=== PATIENT | male | born 1955 | race Caucasian/White ===

== ENCOUNTER → 2018-05-29 09:54 | Outpatient (CLI) | payer BC, SELFPAY ==
[2018-05-29 12:18] LABS: Absolute Lymphocyte Count 1.86 X10^3/ul (0.83-4.51); Basophil# 0.06 X10^3/uL; Basophil% 0.7 % (0-1); Eosinophils% 3.3 % (0-5); Hematocrit 47.2 % (40-54); Hemoglobin 15.9 g/dl (13.0-16.5); Lymphocyte # 1.86 X10^3/ul (4.0); Lymphocyte % 20.5 % (19-41); Mean Corp Hgb Conc 33.7 g/gl (32-36); Mean Corpuscular Hgb 29.8 pg (27.0-32.0); Mean Corpuscular Volume 88.6 fL (80-94); Mean Platelet Vol. 10.2 fl (6.2-12.0); Monocyte# 0.84 X10^3/uL; Monocyte% 9.3 % (0-10); Platelet Count 262 K/mm3 (150-450); RBC Distribution Width CV 14.6 % (11.6-14.6); Red Blood Count 5.33 M/mm3 (4.6-6.2); White Blood Count 9.1 K/mm3 (4.4-11.0)
[2018-05-29 12:23] LABS: POSITIVE COUNT NO; POSITIVE DIFFERENTIAL NO; POSITIVE MORPHOLOGY NO
[2018-05-29 12:30] LABS: Cholesterol 221 mg/dL (200); High Density Lipoprotein 43 mg/dL; PSA,Total - Annual Screen 1.41 ng/mL (0.00-4.00); Triglycerides 107 mg/dL; Very Low Density Lipoprotein 21 mg/dL (5-40)
[2018-05-29 12:37] LABS: Hemoglobin A1c 5.4 % (4.2-6.3)
[2018-05-29 12:42] LABS: Microalbumin,Random Urine 23.4 mg/L (NO RANGE EST.); Microalbumin:Creatinine Ratio 57.6 mg/g CRE (<30 mg/g CRE)
== END ==
PROVIDERS: Family Provider Family Medicine; PCP Family Medicine; Visit Provider Family Medicine
DX: Z00.01 Encounter for general adult medical examination with abnormal findings (principal); I10 Essential (primary) hypertension; E78.00 Pure hypercholesterolemia, unspecified; Z72.0 Tobacco use; Z12.5 Encounter for screening for malignant neoplasm of prostate; Z83.3 Family history of diabetes mellitus
CPT/HCPCS: 36415; 80061; 82043; 82570; 83036; 84153; 85025; G0103

== ENCOUNTER → 2018-06-19 13:43 | Outpatient (CLI) | payer BC, SELFPAY ==
--- NOTE | 2018-06-19 13:47 | CT_ITS ---
STUDY: LOW DOSE CT LUNG CANCER SCREENING REASON FOR EXAM: Male, 63 years old. Tobacco abuse 1 packet q. day x 40 years. RADIATION DOSAGE (If Supplied By Facility): CTDIvol = ( 3.02 ) mGy, DLP = ( 106.46 ) mGycm TECHNIQUE: No contrast was administered. Low dose technique was utilized (average mAS-38 and kVp 120). 1.25 mm axial source images with a slice interval of 1.25-mm were reconstructed in lung windows. Nodule measured using lung windows on PACS and/or independent workstation with automated measurement of minimum and maximum diameter. Nodule measurement reported as average diameter rounded to the nearest whole number. Growth is defined as an increase ins size of greater than 1.5 mm. # of Images: 497 COMPARISON: None. NODULES: Nodule: No worrisome lung nodule or mass identified. Emphysema: There are COPD changes. A 5.8 mm calcified nodule/granuloma present anteriorly in the right middle lobe. Inferiorly there is mild atelectasis in the lingula. Minor atelectasis posteriorly in the left lower lobe. Endobronchial lesion: None. Aorta: Mild atherosclerotic calcification of the aortic arch. Coronary arteries: Atherosclerotic calcification of the coronary arteries. Heart: Normal in size. Pulmonary artery: Within normal limits. Mediastinal nodes: No significant mediastinal or hilar lymphadenopathy demonstrated. Other chest and abdominal findings: Mildly increased thoracic kyphosis. Diffuse fatty hepatic infiltration. CT/Low Dose CT Lung Screening IMPRESSION: No worrisome lung nodule or mass identified. Lung-RADS category 2 - Continue annual screening with LDCT in 12 months. Possible COPD. Atherosclerotic coronary arterial calcifications. IMPORTANT NOTES FOR USE: ACR Lung-RADS Version 1.0 Assessment Categories Release Date: December 27, 2013 Category: Coded 0-4 bases on nodule(s) with highest degree of suspicion. Negative screen is defined as categories 1 and 2; a positive screen is defined as categories 3 and 4. Category 3 and 4A nodules that are unchanged on interval CT should be coded as category 2, and individuals returned to screening in 12 months. Category 4X: Category 3 or 4 nodules with additional imaging findings that increase the suspicion of lung cancer, such as spiculation, GGN that doubles in size in 1 year, enlarged lymph notes, etc. Category Modifiers: S (significant finding unrelated to lung cancer) and C (prior history of treated lung cancer) may be added to the 0-4 Lung-RADS Electronically Signed: Renetta Palacios MD at 8:12 EDT Tel , Service support ,
== END ==
PROVIDERS: Family Provider Family Medicine; PCP Family Medicine; Referring Provider Family Medicine; Visit Provider Family Medicine
DX: R03.0 Elevated blood-pressure reading, without diagnosis of hypertension (principal); Z72.0 Tobacco use; Z87.891 Personal history of nicotine dependence; Z12.2 Encounter for screening for malignant neoplasm of respiratory organs; Z82.49 Family history of ischemic heart disease and other diseases of the circulatory system
CPT/HCPCS: G0297

== ENCOUNTER → 2019-06-04 | Outpatient (CLI) | payer BC, SELFPAY ==
[2017-07-15 08:11] VITALS: BMI 26.3
[2019-06-04 12:46] LABS: Absolute Lymphocyte Count 2.28 X10^3/uL (0.83-4.51); Basophil# 0.06 X10^3/uL; Basophil% 0.6 % (0-1); Eosinophil# 0.32 X10^3/uL; Eosinophils% 3.3 % (0-5); Hematocrit 47.5 % (40-54); Hemoglobin 15.5 g/dL (13.0-16.5); Lymphocyte # 2.28 X10^3/ul (4.0); Lymphocyte % 23.7 % (19-41); Mean Corp Hgb Conc 32.6 g/dL (32-36); Mean Corpuscular Hgb 28.9 pg (27.0-32.0); Mean Corpuscular Volume 88.5 fL (80-94); Mean Platelet Vol. 9.3 fl (6.2-12.0); Monocyte# 0.95 X10^3/uL; Monocyte% 9.9 % (0-10); NRBC Flagged by Analyzer 0 % (0-5); Neutrophil % 62.2 % (47-70); Platelet Count 248 K/mm3 (150-450); RBC Distribution Width CV 14.2 % (11.6-14.6); RBC Distribution Width SD 45.5 fl (35.1-43.9); Red Blood Count 5.37 M/mm3 (4.6-6.2); White Blood Count 9.6 K/mm3 (4.4-11.0)
[2019-06-04 13:13] LABS: Microalbumin,Random Urine 11.9 mg/L (NO RANGE EST.)
[2019-06-04 13:15] LABS: ALB/GLOB Ratio 1.3 RATIO (0.9-2.4); AST(SGOT) 10 U/L (15-37); Alanine Aminotransfer ALT/SGPT 21 U/L (16-61); Albumin, Serum 4.4 g/dL (3.2-5.0); Alkaline Phosphatase 46 U/L (45-117); Anion Gap 4 (5-15); BUN 16 mg/dL (7-18); Calcium,Total 9.3 mg/dL (8.5-10.1); Chloride 106 mmol/L (98-107); Cholesterol 233 mg/dL (200); Creatinine, Serum 0.84 mg/dL (0.70-1.30); EST Glomerular Filtration Rate 97 mL/min (>60); Est Glom Filt Rate - Afr Amer 117 mL/min (>60); Globulin 3.3 g/dL (2.2-4.2); Glucose 84 mg/dL (74-106); High Density Lipoprotein 45 mg/dL; PSA,Total - Annual Screen 1.89 ng/mL (0.00-4.00); Protein, Total 7.7 g/dL (6.4-8.2); Sodium Level 138 mmol/L (136-145); Triglycerides 123 mg/dL; Very Low Density Lipoprotein 25 mg/dL (5-40)
== END | disposition home or self-care (01) ==
PROVIDERS: Family Provider Family Medicine; PCP Family Medicine; Visit Provider Family Medicine
DX: Z00.00 Encounter for general adult medical examination without abnormal findings (principal); I10 Essential (primary) hypertension; R80.9 Proteinuria, unspecified; E78.00 Pure hypercholesterolemia, unspecified; Z12.5 Encounter for screening for malignant neoplasm of prostate
CPT/HCPCS: 36415; 80053; 80061; 82043; 82570; 84153; 85025; G0103

== ENCOUNTER → 2020-04-24 | Outpatient (CLI) | payer MEDICARE, OTHER, SELFPAY ==
[2017-07-15 08:11] VITALS: BMI 26.3
--- NOTE | 2020-04-24 08:58 | RAD_ITS ---
STUDY: X-RAY - RIGHT ELBOW REASON FOR EXAM: Male, 65 years old. right elbow pain, lateral bony enlargement -- no injury-years of bowling TECHNIQUE: 3 view(s) of the elbow. COMPARISON: None. FINDINGS: Normal visualized humerus, radius and ulna. Normal radiocapitellar and ulnotrochlear articulations. The soft tissue structures are unremarkable. RAD/Elbow min 3 Views IMPRESSION: Normal x-ray examination of the elbow. Electronically Signed: Artemio Cody MD at 17:20 EDT Tel , Service support ,
== END | disposition home or self-care (01) ==
LOC: MTRAD 08:55
PROVIDERS: PCP Family Medicine; Referring Provider Family Medicine; Visit Provider Family Medicine
DX: M25.521 Pain in right elbow (principal)
CPT/HCPCS: 73080

== ENCOUNTER → 2020-05-09 | Outpatient (CLI) | payer MEDICARE, OTHER, SELFPAY ==
[2017-07-15 08:11] VITALS: BMI 26.3
--- NOTE | 2020-05-09 07:16 | MRI_ITS ---
STUDY: MRI BRAIN WITH AND WITHOUT CONTRAST REASON FOR EXAM: Male, 65 years old. Familial history of brain aneurysm. TECHNIQUE: Standardized multiplanar fat and water weighted pulse sequences were obtained. 16ml of IV Dotarem was administered for the contrast portion of the examination. COMPARISON: None. FINDINGS: No restricted diffusion throughout the brain parenchyma. Normal size of the ventricles and extra-axial spaces for the patient''s age. Small subcortical white matter T2 FLAIR hyperintensity in both cerebral hemispheres are nonspecific. They may be secondary to microvascular disease. Normal bilateral basal ganglia. Normal thalami. There is no extra-axial fluid accumulation. Normal flow voids within the major intracranial circulation suggesting patency by spin echo criteria. Normal venous enhancement. There is no enhancing intra-axial or extra-axial abnormality. Normal sella turcica, pituitary gland, infundibular stalk, optic chiasm and hypothalamus. Normal tectal plate and pineal gland. Normal midbrain, fidencio and medulla. Normal cerebellum. Normal basal cisterns. Normal bilateral temporal bones. Normal bilateral internal auditory canals. No demonstrated orbital abnormality, within the constraints of a routine brain study. Mucosal thickening in the maxillary sinuses and ethmoid sinuses. Normal calvarium and skull base. Normal visualized soft tissue structures. Normal visualized upper cervical spine. No abnormal enhancing lesions extra-axially and intraaxially. MRI/Brain W/WO Contrast IMPRESSION: 1. No MRI evidence of acute or subacute ischemic infarct or acute intracranial abnormality. 2. No MRI evidence of any enhancing lesions extra-axially and intraaxially. 3. Multiple small subcortical white matter T2 FLAIR hyperintensity foci in both cerebral hemispheres are nonspecific. They may be secondary to microvascular disease. 4. Moderate mucosal thickening in the maxillary sinuses and mild mucosal thickening in the ethmoid sinuses COMMENT: MRA of the head is more helpful for evaluation of intracranial aneurysm not visible on an MRI of the brain with and without contrast. Electronically Signed: Jarrod Patel MD at 9:15 EDT , Service support ,
[2020-05-09 07:45] LABS: CREATININE FINGERSTICK 0.9 mg/dL (0.70-1.30); EGFR FINGERSTICK > 60.0000 mL/min (>60)
--- NOTE | 2020-05-09 08:23 | CT_ITS ---
STUDY: LOW DOSE CT LUNG CANCER SCREENING REASON FOR EXAM: Male, 65 years old. FAM HX OF LUNG CA, TOBACCO ABUSE, SMOKER 46 YRS X 1PPD, UE=115, HX-AAA RADIATION DOSAGE (If Supplied By Facility): CTDIvol = ( 3.02 ) mGy, DLP = ( 116.64 ) mGycm TECHNIQUE: No contrast was administered. Low dose technique was utilized (average mAS-38 and kVp 120). 1.25 mm axial source images with a slice interval of 1.25-mm were reconstructed in lung windows. 2.5 mm axial source images with a slice interval of 2.5-mm were reconstructed in lung windows. 5.0 mm axial source images with a slice interval of 5.0-mm were reconstructed in soft tissue windows. Nodule measured using lung windows on PACS and/or independent workstation with automated measurement of minimum and maximum diameter. Nodule measurement reported as average diameter rounded to the nearest whole number. Growth is defined as an increase ins size of greater than 1.5 mm. COMPARISON: Comparison is made with prior study dated 06/19/2018. NODULES: Stable focal scarring in the anterior lateral aspect of the lingular segment of the left upper lobe. Stable calcified granuloma in the anterior right middle lobe. Emphysema: Mild emphysematous changes. Aorta: Atherosclerotic plaques. Coronary arteries: Coronary artery calcification. Heart: Unremarkable. Pulmonary artery: Within normal limits. Mediastinal nodes: Small benign-appearing lymph nodes. Other chest and abdominal findings: CT/Low Dose CT Lung Screening IMPRESSION: Lung-RADS category 2 - Continue annual screening with LDCT in 12 months. IMPORTANT NOTES FOR USE: ACR Lung-RADS Version 1.0 Assessment Categories Release Date: December 27, 2013 Category: Coded 0-4 bases on nodule(s) with highest degree of suspicion. Negative screen is defined as categories 1 and 2; a positive screen is defined as categories 3 and 4. Category 3 and 4A nodules that are unchanged on interval CT should be coded as category 2, and individuals returned to screening in 12 months. Category 4X: Category 3 or 4 nodules with additional imaging findings that increase the suspicion of lung cancer, such as spiculation, GGN that doubles in size in 1 year, enlarged lymph notes, etc. Category Modifiers: S (significant finding unrelated to lung cancer) and C (prior history of treated lung cancer) may be added to the 0-4 Lung-RADS Electronically Signed: Aden Mcdermott, at 10:46 EDT , Service support ,
--- NOTE | 2020-05-09 08:39 | US_ITS ---
PROCEDURES: ULTRASOUND AORTA REASON FOR EXAM: Male, 65 years old. Smoker TECHNIQUE: Ultrasound evaluation of the aorta was performed with real-time and static france-scale imaging. COMPARISON: None. FINDINGS: There is atherosclerotic plaque formation of the abdominal aorta. Aorta measures: Proximal 2.2 cm. Middle 3.7 cm. Distal 2.5 cm. Aorta measure transversely: Proximal 2.1 cm. Middle 3.2 cm. Distal 5.6 cm. Right iliac artery measures: 1.7 cm. Right iliac artery measure transversely: 1.7 cm. Left iliac artery measures: 1.7 cm. Left iliac artery measure transversely: 9.2 cm. Saccular infrarenal abdominal aortic aneurysm with a transverse dimension of 5.6 cm in AP dimension of 5.3 cm.. Mural thrombus. US/Aorta IMPRESSION: Saccular infrarenal abdominal aortic aneurysm with a transverse dimension of 5.6 cm. Mural thrombus. Ectasia of the common iliac arteries bilaterally. Electronically Signed: Aden Mcdermott, at 9:32 EDT , Service support ,
== END | disposition home or self-care (01) ==
LOC: US 07:10
PROVIDERS: PCP Family Medicine; Referring Provider Family Medicine; Visit Provider Family Medicine
DX: F17.210 Nicotine dependence, cigarettes, uncomplicated (principal); I10 Essential (primary) hypertension; Z13.6 Encounter for screening for cardiovascular disorders; Z82.49 Family history of ischemic heart disease and other diseases of the circulatory system; Z12.2 Encounter for screening for malignant neoplasm of respiratory organs
CPT/HCPCS: 70553; 76775; A9575; G0297

== ENCOUNTER → 2020-07-07 07:54 | Outpatient (CLI) | payer MEDICARE, OTHER, SELFPAY ==
[2017-07-15 08:11] VITALS: BMI 26.3
[2020-07-07 08:24] LABS: Absolute Lymphocyte Count 2.58 X10^3/uL (0.83-4.51); Absolute Neutrophil Count 6.4 X10^3/uL (2.0-7.7); Basophil# 0.07 X10^3/uL; Basophil% 0.7 % (0-1); Eosinophil# 0.31 X10^3/uL; Hematocrit 49.4 % (40-54); Lymphocyte # 2.58 X10^3/ul (4.0); Lymphocyte % 24.7 % (19-41); Mean Corp Hgb Conc 32.4 g/dL (32-36); Mean Corpuscular Hgb 29.1 pg (27.0-32.0); Mean Corpuscular Volume 89.8 fL (80-94); Mean Platelet Vol. 9.1 fl (6.2-12.0); Monocyte# 1.05 X10^3/uL; Monocyte% 10.1 % (0-10); NRBC Flagged by Analyzer 0 % (0-5); Neutrophil # 6.39 X10^3/uL (2.7-7.7); Neutrophil % 61.2 % (47-70); Platelet Count 266 K/mm3 (150-450); RBC Distribution Width CV 13.9 % (11.6-14.6); RBC Distribution Width SD 45.5 fl (35.1-43.9); White Blood Count 10.4 K/mm3 (4.4-11.0)
[2020-07-07 08:47] LABS: ALB/GLOB Ratio 1.1 RATIO (0.9-2.4); AST(SGOT) 11 U/L (15-37); Alanine Aminotransfer ALT/SGPT 19 U/L (16-61); Albumin, Serum 3.9 g/dL (3.2-5.0); Alkaline Phosphatase 46 U/L (45-117); Anion Gap 2 (5-15); BUN 20 mg/dL (7-18); BUN/Creat Ratio 23.1 RATIO (10-20); Calcium,Total 9.2 mg/dL (8.5-10.1); Chloride 112 mmol/L (98-107); Cholesterol 214 mg/dL (200); Creatinine, Serum 0.86 mg/dL (0.70-1.30); EST Glomerular Filtration Rate 94 mL/min (>60); Est Glom Filt Rate - Afr Amer 114 mL/min (>60); Globulin 3.6 g/dL (2.2-4.2); Glucose 101 mg/dL (74-106); High Density Lipoprotein 45 mg/dL; PSA,Total - Annual Screen 1.51 ng/mL (0.00-4.00); Protein, Total 7.5 g/dL (6.4-8.2); Sodium Level 142 mmol/L (136-145); Triglycerides 102 mg/dL; Very Low Density Lipoprotein 20 mg/dL (5-40)
[2020-07-07 08:48] LABS: Vitamin D,25 Hydroxy 19.4 ng/mL
== END ==
PROVIDERS: PCP Family Medicine; Referring Provider Family Medicine; Visit Provider Family Medicine
DX: I10 Essential (primary) hypertension (principal); E78.00 Pure hypercholesterolemia, unspecified; E55.9 Vitamin D deficiency, unspecified; Z12.5 Encounter for screening for malignant neoplasm of prostate
CPT/HCPCS: 36415; 80053; 80061; 82306; 84153; 85025; G0103

== ENCOUNTER 2020-11-02 15:58 | Outpatient (RCR) | payer MEDICARE, OTHER, SELFPAY ==
[2017-07-15 08:11] VITALS: BMI 26.3
[2020-11-02] MEDS: COVID-19 VACC, MRNA(PFIZER)/PF 30 MCG/0.3 ML SYRINGE IM (08:03)
[2020-11-23] MEDS: COVID-19 VACC, MRNA(PFIZER)/PF 30 MCG/0.3 ML SYRINGE IM (07:56)
== END 2021-02-06 23:59 ==
LOC: IMMUN 15:58
PROVIDERS: PCP Family Medicine; Visit Provider Family Medicine
DX: Z23 Encounter for immunization (principal)
CPT/HCPCS: 0001A; 0002A; 91300

== ENCOUNTER 2022-04-23 08:03 | Inpatient (IN) | payer MEDICARE, OTHER, SELFPAY ==
[2022-04-23] VITALS (24 sets, daily range): BP systolic 117–176; BP diastolic 71–102; PULSE 56–80; RESP 16–22; TEMP 36.1–36.9; O2SAT 94–99; BMI 24.3; BMI 23.8
--- NOTE | 2022-04-23 08:12 | EKG12_ITS ---
Test Reason : CP Blood Pressure : / mmHG Vent. Rate : 060 BPM Atrial Rate : 060 BPM P-R Int : 154 ms QRS Dur : 096 ms QT Int : 450 ms P-R-T Axes : 056 -66 049 degrees QTc Int : 450 ms Normal sinus rhythm Left axis deviation ST elevation consider anterolateral injury or acute infarct ACUTE [place] / STEMI Abnormal ECG Confirmed by YULIANA RAUSCH, ROBSON ([id number]), editor publications LUIZ HADDAD ([id number]) on 04/24/2022 11:26:06 AM Referred By: Kathryn Fontana Confirmed By:ROBSON BRIDGES MD
--- NOTE | 2022-04-23 08:14 | ED.VIS.CHEST ---
HPI History of Present Illness Chief Complaint: Chest Pain Informant: patient and spouse/S.O. Narrative Narrative: 67-year-old male presents to the emergency department with 2 hours of a central chest pain. Patient notes associated nausea and diaphoresis. He notes discomfort in his bilateral arms. He has a history of abdominal aortic repair in 2019. He denies any recent bleeding or any ingestion of phosphodiesterase inhibitors. He is an active smoker. PFSH PFSH Medical History COPD (chronic obstructive pulmonary disease) Hypertension Smoker Home Medications cholecalciferol (vitamin D3) 25 mcg (1,000 unit) capsule (Vitamin D3) 1,000 unit PO DAILY 07/14/17 [History Last Taken Unknown] cyanocobalamin (vitamin B-12) 1,000 mcg tablet (Vitamin B-12) 1,000 mcg PO DAILY 07/14/17 [History Last Taken Unknown] emfpohyx-yxc-kozwg acid 300 mcg-lycopene 600 mcg-lutein 300 mcg tablet (Centrum Silver Men) 1 ea PO DAILY 07/14/17 [History Last Taken Unknown] omega 7-cfs-jwm-fish oil 300 mg-1,000 mg capsule (Fish Oil) 1 ea PO DAILY 07/14/17 [History Last Taken Unknown] pyridoxine (vitamin B6) 50 mg tablet 100 mg PO DAILY 07/14/17 [History Last Taken Unknown] Allergy/AdvReac Type Severity Reaction Status Date / Time No Known Allergies Allergy Verified 04/23/22 08:23 Surgical History S/P AAA repair Social History (Updated 04/23/22 @ 08:[address] Yonny Ames, ) current gender identity: male Smoking Status: Heavy Smoker (>10/day) ROS ROS ED Constitutional Constitutional ED: Denies chills or weight loss Eyes Eyes: Denies change in vision or diplopia ENT ENT ED: Denies ear pain, rhinorrhea or sore throat Cardiovascular Cardiovascular: Reports chest pain; Denies orthopnea, palpitations or racing heartbeat Respiratory/Chest Respiratory/Chest: Denies cough, dyspnea or orthopnea Gastrointestinal Gastrointestinal: Reports nausea; Denies abdominal pain, diarrhea or vomiting Genitourinary Genitourinary ED: Denies dysuria, hematuria or urinary frequency Musculoskeletal Musculoskeletal: Denies arthralgias or myalgias Integumentary Denies abscess or rash Neurologic Neurologic: Denies headache(s) or weakness Psychiatric Psychiatric: Denies anxiety, depression, suicidal ideation or suicidal thoughts Endocrine Endocrinology: Denies polydipsia, polyphagia or polyuria Allergic/Immunologic Allergic/Immunologic ED: Denies mouth swelling, tongue swelling or urticaria EXAM Physical Exam Const Vital Signs: 04/23/22 08:04 04/23/22 08:08 04/23/22 08:10 Temperature 96.9 F L 97.6 F L Temperature Source Temporal Temporal Pulse Rate 66 58 L Respiratory Rate 16 18 20 H Respiratory Effort Blood Pressure 176/98 H 176/98 H 176/98 H Blood Pressure Mean 124 124 Pulse Ox 96 98 Oxygen Delivery Method Room Air Room Air 04/23/22 08:23 04/23/22 08:26 Temperature 97.6 F L Temperature Source Temporal Pulse Rate 58 L Respiratory Rate 18 Respiratory Effort Normal Non-Labored Blood Pressure 172/92 H Blood Pressure Mean 118 Pulse Ox 98 Oxygen Delivery Method Room Air Positive well nourished and well developed General Appearance ED: well developed HEENT Reports normocephalic, head/scalp atraumatic and moist mucous membranes Eyes PERRL and EOMs intact bilaterally Neck no lymphadenopathy, supple and no JVD Resp normal respiratory effort and clear to auscultation bilaterally Cardio regular rate, regular rhythm and no murmurs GI normal to inspection, nondistended, normoactive bowel sounds and non-tender Palpation: soft Back/Spine no CVA tenderness and normal ROM Extremity normal to inspection General Extremety ED: Negative for edema General Extremity: Negative for edema Neuro oriented x3 and CN's II-XII intact bilaterally Sensorium / Orientation: alert Motor Exam: strength 5/5 throughout Psych mental status grossly normal Mood & Affect: Negative for depressed or tearful Skin no rashes or lesions noted and no wounds Skin Narrative: Diaphoretic MDM MDM MDM Narrative Medical decision making narrative: Patient's EKG is a STEMI. He received heparin Brilinta aspirin morphine Zofran and nitroglycerin. Patient will be taken to the [facility] emerg[facility]. Lab Data Attestation: I reviewed the patient's lab results. Labs: Laboratory Results - last 24 hr 04/23/22 04/23/22 04/23/22 08:15 08:15 08:15 WBC 15.4 H RBC 5.68 Hgb 16.6 H Hct 49.5 MCV 87.1 MCH 29.2 MCHC 33.5 RDW Std Deviation 46.1 H RDW Coeff of Renata 14.4 Plt Count 278 MPV 9.1 Immature Gran % (Auto) 0.600 Neut % (Auto) 78.9 H Lymph % (Auto) 13.2 L [place] % (Auto) 6.5 Eos % (Auto) 0.5 Baso % (Auto) 0.3 Absolute Neuts (auto) 12.2 H Absolute Lymphs (auto) 2.03 Nucleated RBC % 0 PT 13.4 INR 1.1 APTT 28.2 Sodium 139 Potassium 3.4 L Chloride 108 H Carbon Dioxide 24.0 Anion Gap 7 BUN 17 Creatinine 0.92 Estim Creat Clear Calc 79.35 Est GFR (MDRD) Af Amer 105 Est GFR (MDRD) Non-Af 87 BUN/Creatinine Ratio 18.5 Glucose 137 H Calcium 10.0 Phosphorus Magnesium Total Bilirubin Direct Bilirubin AST ALT Alkaline Phosphatase Troponin I High Sens 1862 H* Total Protein Albumin Globulin 04/23/22 08:15 WBC RBC Hgb Hct MCV MCH MCHC RDW Std Deviation RDW Coeff of Renata Plt Count MPV Immature Gran % (Auto) Neut % (Auto) Lymph % (Auto) [place] % (Auto) Eos % (Auto) Baso % (Auto) Absolute Neuts (auto) Absolute Lymphs (auto) Nucleated RBC % PT INR APTT Sodium Potassium Chloride Carbon Dioxide Anion Gap BUN Creatinine Estim Creat Clear Calc Est GFR (MDRD) Af Amer Est GFR (MDRD) Non-Af BUN/Creatinine Ratio Glucose Calcium Phosphorus 1.9 L Magnesium 2.4 Total Bilirubin 0.80 Direct Bilirubin 0.16 AST 30 ALT 20 Alkaline Phosphatase 40 L Troponin I High Sens Total Protein 8.0 Albumin 4.4 Globulin 3.6 EKG Initial EKG: Attestation: I personally reviewed and interpreted this EKG as follows: Comments: Normal sinus rhythm with a ventricular rate of 60 bpm. There is significant ST elevation in anterior lateral pattern. Discharge Plan Dx/Rx/DC Orders Clinical Impression: ST elevation (STEMI) myocardial infarction, Tobacco abuse Disposition Disposition: Acute Care Hospital [facility] Discharge Date/Time: 04/23/22 08:18
[2022-04-23] MEDS: Ondansetron 4 MG/2 ML Vial IV ×2 (08:15→21:30)
[2022-04-23] MEDS: Morphine 4 MG/ML Syringe IV (08:15)
[2022-04-23] MEDS: Heparin Injection (Vial) 5,000 UNIT/ML VIAL 4000 UNIT IV (08:15)
[2022-04-23] MEDS: Aspirin 81 MG TAB.CHEW 324 MG PO (08:16)
[2022-04-23] MEDS: TICAGRELOR 90 MG TABLET 180 MG PO (08:16)
--- NOTE | 2022-04-23 08:24 | HP.PCM.HOS_ITS ---
HPI - General General Date of Admission: 04/23/22 Date of Service: 04/23/22 Chief Complaint: Chest pain started about 2 AM today, lasted for 2 hours. Associated with diaphoresis. HPI Narrative HUSSEIN ATKINS, is a 67 M with recent history of AAA stenting in August 2020 in [facility] came to ED for chest pressure/tightness, 8/10 intensity in the mid sternal chest region with radiation to both arms associated with diaphoresis, fatigue and anxiety. Patient could not sleep last night. However, patient denied associated shortness of breath but he vomited and felt nauseous. No abdominal pain. Patient denies any prior history of KS/cardiac cath or stent. For last few days he has been feeling mild shortness of breath and right shoulder uneasiness prior to this event. In ED, twelve-lead EKG shows ST elevation 3 mm in anterolateral leads from V1 to V5 with reciprocal ST depression in inferior leads. Normal sinus rhythm 60 bpm, QRS 96, QTc 450 ms. Repeat twelve-lead EKG similar. BP high 176/98, heart rate 66/min, normal respiratory rate and pulse ox. A STEMI alert was called and patient immediately moved to cardiac [facility]. Patient had cardiac cath in the morning, PCI required 2 stents in LAD and diagonal. Patient is further admitted in ICU. Patient is a chronic smoker started at the age of 17 in high school with a pack per day. Recently he cut down to few cigarettes. His PCP has presumably diagnosed COPD primarily on clinical basis but never had PFT. He has albuterol inhaler for last 3 years. Denies prior KS, coronary artery disease or valvular heart disease. PFSH Medical History COPD (chronic obstructive pulmonary disease) Hypertension Myocardial infarct Sciatica Smoker Home Medications cholecalciferol (vitamin D3) 25 mcg (1,000 unit) capsule (Vitamin D3) 1,000 unit PO DAILY supplement 07/14/17 [History Last Taken 04/22/22] amlodipine 10 mg tablet (Norvasc) 10 mg PO DAILY blood pressure 04/23/22 [History Last Taken 04/22/22] Allergy/AdvReac Type Severity Reaction Status Date / Time No Known Allergies Allergy Verified 04/23/22 08:23 Surgical History S/P AAA repair Social History current gender identity: male Smoking Status: Heavy Smoker (>10/day) ROS ROS Narrative Constitutional: Reports fatigue and weakness whole night. No fever HEENT: Reports systems reviewed and no addt'l complaints, except as documented Respiratory/Chest: As described in HPI Gastrointestinal: Nausea and vomiting in ED. No hematemesis melena or hematochezia. No diarrhea Genitourinary: Denies burning urination or new urinary tract symptoms Musculoskeletal: Denies joint pain and limited range of motion Neurologic: Denies seizure-like activity. No stroke or focal weakness skin: No ulcer. No rash Endocrinology: Denies hypoglycemia or diabetes mellitus. Reports systems reviewed and no addt'l complaints, except as documented Hematologic/Lymphatic: Reports systems reviewed and no addt'l complaints, except as documented Rest 14 ROS are negative except as mentioned in HPI Vital Signs Vital Signs Vital Signs: 04/23/22 08:04 04/23/22 08:08 04/23/22 08:10 Temperature 96.9 F L 97.6 F L Temperature Source Temporal Temporal Pulse Rate 66 58 L Respiratory Rate 16 18 20 H Blood Pressure 176/98 H 176/98 H 176/98 H Blood Pressure Mean 124 124 Pulse Ox 96 98 Oxygen Delivery Method Room Air Room Air Weight Weight: 169 lb 5.04 oz Body Mass Index (BMI) 24.3 Physical Exam Narrative General: Alert, Oriented x3, Cooperative. HEENT: Atraumatic, PERRLA, EOMI, Normocephalic Oral: No Gingival or Mucosal Lesions/ Ulcerations Neck: Supple, No JVD, Negative Carotid Bruits Lungs: Air entry diminished in bilateral lung bases. No crepitation/rhonchi Cardiovascular: Regular rate, Regular Rhythm, Normal S1, Normal S2, No murmurs Abdomen: Bowel Sounds Present, Soft, Non Tender, Non-Distended : No renal angle tenderness. No suprapubic tenderness. Extremities: No edema, Capillary Refill Less than 3 Seconds Skin: No rashes, No breakdown Musculoskeletal: No Tenderness to Palpation of Joints or Extremities Neurological: Cranial nerves II-XII grossly intact, DTR 2+/4 and Symmetrical, Neuro grossly intact Psych/Mental Status: Normal Affect, Appropriate. Results Lab / Micro Data Result Diagrams: 04/23/22 08:15 04/23/22 08:15 Assessment & Plan Assessment/Plan (1) ST elevation (STEMI) myocardial infarction: PLAN: Plan This 67-year-old gentleman admitted with chest pain lasted for 2 hours and diagnosed anterolateral STEMI on the basis of acute EKG 1. Anterolateral STEMI: Patient is admitted in ICU after cardiac cath. Chest pain/angina has resolved. 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 Patient had PCI and 2 stents in the LAD and D1 which was more like a branch segment. Patient also has a long segment of circumflex which will need PCI probably on coming Friday on 04/26/2022. Formal cardiac cath report pending. Patient has other stenosis in the RCA which can be done as an outpatient. On IV fluid for 6 hours to prevent MARYURI. On aspirin, Brilinta, beta-gricel, lisinopril and high intensity atorvastatin. TSH and fasting for tomorrow a.m. 2D echo is ordered. Troponins are high. Discussed with the patient's . 2. Electrolyte abnormality: Hypokalemia and hypophosphatemia: Electrolytes are getting replaced. 3. Hyperglycemia: Glucose is 137 in BMP. A1c ordered for tomorrow AM. 4. Hypertension, uncontrolled: Most recent blood pressures show systolic in 150s. Patient on lisinopril and amlodipine. 5. AAA repair with a stent in 2019 6. Presumable diagnosis of COPD: Patient will need PFT as an outpatient. DuoNeb as needed for shortness of breath. Chest x-ray ordered. VTE prophylaxis: Lovenox 40 minutes of daily after 24 hours of cardiac cath. Bilateral SCD Living will/advanced directive/end of life care: Patient does have living will or advanced directive. His is power of corporate attorney for health. After discussion of benefits/risks procedures involved with full code, DNR CC arrest and DNR CC, the patient and the opted for full code. Patient does want artificial life support including intubation, tube feed, ventilator and/chest compression, central venous catheter, vasopressor and DC shock if needed Total time spent in [id number] encounter in discussion of advanced directi ve 16 minutes. Total time of the visit including total time spent in counseling or coordination of care, (more than 50% of the total time, spent in obtaining medical information from nurses and other ancillary care providers,explaining to the patient about labs, imaging, diagnosis and management of active complex medical conditions), , review of labs and imaging is 40 minutes. Charges/Coding Visit Charges Inpatient E&M: 61551 Init Hosp L3 Procedures Hospitalists Procedures: 01496 Advncd Care Plan 30 Min
[2022-04-23 08:27] LABS: Absolute Lymphocyte Count 2.03 X10^3/uL (0.83-4.51); Absolute Neutrophil Count 12.2 X10^3/uL (2.0-7.7); Basophil# 0.04 X10^3/uL; Basophil% 0.3 % (0-1); Eosinophil# 0.07 X10^3/uL; Eosinophils% 0.5 % (0-5); Hematocrit 49.5 % (40-54); Hemoglobin 16.6 g/dL (13.0-16.5); Lymphocyte # 2.03 X10^3/ul (0.83-4.51); Lymphocyte % 13.2 % (19-41); Mean Corp Hgb Conc 33.5 g/dL (32-36); Mean Corpuscular Hgb 29.2 pg (27.0-32.0); Mean Corpuscular Volume 87.1 fL (80-94); Mean Platelet Vol. 9.1 fl (6.2-12.0); Monocyte% 6.5 % (0-10); NRBC Flagged by Analyzer 0 % (0-5); Neutrophil % 78.9 % (47-70); Platelet Count 278 K/mm3 (150-450); RBC Distribution Width CV 14.4 % (11.6-14.6); RBC Distribution Width SD 46.1 fl (35.1-43.9); Red Blood Count 5.68 M/mm3 (4.6-6.2); White Blood Count 15.4 K/mm3 (4.4-11.0)
[2022-04-23 08:36] LABS: International Normalized Ratio 1.1; Prothrombin Time (Protime)PT. 13.4 SECONDS (11.7-14.9)
[2022-04-23 08:37] LABS: Partial Thromboplast Time 28.2 Seconds (24.1-36.2)
[2022-04-23 08:51] LABS: Anion Gap 7 (5-15); BUN 17 mg/dL (7-18); BUN/Creat Ratio 18.5 RATIO (10-20); Chloride 108 mmol/L (98-107); Creatinine, Serum 0.92 mg/dL (0.70-1.30); EST Glomerular Filtration Rate 87 mL/min (>60); Est Glom Filt Rate - Afr Amer 105 mL/min (>60); Estimated Creatinine Clearance 79.35 ml/min; Glucose 137 mg/dL (74-106); Potassium 3.4 mmol/L (3.5-5.1); Sodium Level 139 mmol/L (136-145); Troponin-I HS 1862 pg/mL (3.0-78.0)
[2022-04-23 09:04] LABS: AST(SGOT) 30 U/L (15-37); Alanine Aminotransfer ALT/SGPT 20 U/L (16-61); Albumin, Serum 4.4 g/dL (3.2-5.0); Alkaline Phosphatase 40 U/L (45-117); Bilirubin, Direct 0.16 mg/dL (0.00-0.30); Globulin 3.6 g/dL (2.2-4.2); Magnesium 2.4 mg/dL (1.6-2.6); Phosphorus 1.9 mg/dL (2.5-4.9)
[2022-04-23] MEDS: 0.9% Normal Saline 1,000 ML 80 ML IV (10:30)
--- NOTE | 2022-04-23 11:00 | EKG12_ITS ---
Test Reason : POST STEMI Blood Pressure : / mmHG Vent. Rate : 068 BPM Atrial Rate : 068 BPM P-R Int : 158 ms QRS Dur : 094 ms QT Int : 496 ms P-R-T Axes : 057 -36 047 degrees QTc Int : 527 ms Normal sinus rhythm Left axis deviation Anteroseptal infarct , possibly acute Prolonged QT ACUTE [place] / STEMI Abnormal ECG Confirmed by YULIANA RAUSCH, ROSBON ([id number]), editor dictionary LUIZ HADDAD ([id number]) on 04/25/2022 9:53:05 AM Referred By: Kathryn Fontana Confirmed By:ROBSON BRIDGES MD
[2022-04-23] MEDS: Acetaminophen 325 MG Tablet 650 MG PO ×2 (11:06→17:14)
[2022-04-23] MEDS: Potassium Chloride Oral Tablet 20 MEQ 40 MEQ PO (11:12)
[2022-04-23] MEDS: Lisinopril 5 MG Tablet PO (11:12)
[2022-04-23] MEDS: Carvedilol 6.25 MG Tablet PO ×2 (11:12→21:13)
[2022-04-23] MEDS: 0.9% Saline Lock 10 ML Syringe IV ×4 (11:15→21:13)
--- NOTE | 2022-04-23 11:18 | CL.I_ITS ---
Patient Name: HUSSEIN ATKINS Study Date: 04/23/2022 Performing: Johnson Fontana MD Ht: 70 inches 177.8 cm : 1955 Wt: 170.2 lbs 77.11 kg Age: 67 Gender: male BSA: 1.95 PROCEDURE(S) PERFORMED DC01-(43289)LHC/COR/LV IC16-(07438/C9606)AMI, CAMDEN OR PTCA, ARTERY/GRAFT, SINGLE VESSEL IC13-(68360/C9600)CAMDEN W/WO PTCA, EACH ADD'L ART, SAME MAJOR CLINICAL PROFILE AND CO-MORBIDITIES Indications: ACS <= 24 hrs Heart Failure: None Stress/Imaging Stress/Image Study Performed: No CAD Presentations: STEMI. Symptom onset Date/Time: 04/23/22 06:00:00 Time Estimated CONCLUSIONS CAD as described. EF is 35-40% with regional wall motion abnormalities as described. No significant or MR. Successful PCI of LAD and D1 with CAMDEN to both vessels RECOMMENDATIONS Pt. should return for PCI of LCx later this admission and PCI of distal RCA in about 4 weeks DESCRIPTION OF PROCEDURE The patient arrived to the procedure lab. The risks and benefits of the procedure as well as a full description of our services here and lack of surgical backup were fully explained to the patient and/or their significant other prior to the catheterization. The Timeout was completed, verifying the correct patient and procedure. The patient's procedural site was prepped and draped in the usual fashion. Local anesthetic was given subcutaneously to right radial region with Lidocaine 2%. Using a modified Seldinger technique, arterial access was obtained via the right radial artery, a 6Fr sheath was inserted.. Left Ventriculography was performed in WEIR projection using a 5 Fr. JR 4. LV to AO pullback pressures were then recorded. Right Coronary Artery selective angiography was then performed in multiple views using a 5 Fr. JR 4 catheter XB3 Guide catheter was inserted and engaged into the LCA. BMW Guide wire was advanced to the LAD. Priority One inserted Pass # 1 angiogram the proximal Diag 1. 3.0 x 15 Orsiro Drug Eluting stent was advanced across the lesion in the first diagonal, proximal. 2.5 x 15 emerge Balloon catheter was advanced across lesion in the LAD, proximal. PTCA balloon inflated at 8 atms for 16 secs. Angiogram performed post balloon dilatation. 3.0 x 26 Orsiro Drug Eluting stent was advanced across the lesion in the LAD, proximal. Angiogram performed post stent deployment. 3.5 x 15 NC Euphora Balloon catheter was advanced across lesion in the LAD proximal, post stent. 2.5 x 12 Emerge Balloon catheter was advanced across lesion in the first diagonal, proximal. Angiogram performed post balloon dilatation. The arterial sheath was pulled and a TR Band was applied for hemostasis CORONARY ANGIOGRAPHY DOMINANCE: Right Dominant LEFT HEART ASSESSMENT Left Ventricular Ejection Fraction: by LV Gram 35-40 % Abnormal LV wall motion Moderate hypokinesis of the anterior wall and distal inferior wall. Akinesis of the apex LEFT MAIN: Mild luminal irregularities LEFT ANTERIOR DESCENDING ARTERY: PROX LAD: 99 % Stenosis DIAGONAL 1: Proximal - 80 % Stenosis CIRCUMFLEX ARTERY: MID CIRC: 95 % Stenosis RIGHT CORONARY ARTERY: mild to moderate diffuse disease DISTAL RCA: 80 % Stenosis VALVE FINDINGS: No Aortic Valve Stenosis No Mitral Insufficency INTERVENTION INFORMATION LESION SITE: LAD (Proximal) Lesion Complexity: High/C, chronic total occlusion: No, lesion at bifurcation: Yes, thrombus present: Yes, lesion length: 25 mm, culprit lesion: Yes, Previously treated lesion: No Pre Stenosis: 99 % Pre intervention DHAVAL flow: 2 PROCEDURE: Thrombectomy, Drug Eluting Stent with pre and post dilatation Post Stenosis: 0 % Post intervention DHAVAL flow: 3 Lesion Devices: Santos .014 BMW Moffit Straight 190cm Cardinal 6 Fr XB3.0 100cm Guide Catheter [facility] Priority One Aspiration Catheter Mandeep Sci EMERGE MR 2.50x15 BALLOON Biotronik [facility] MR [place] 3.0x26 Medtronic NC EUPHORA RX 3.5x15 BALLOON LESION SITE: 1st Diagonal (Proximal) Lesion Complexity: High/C, chronic total occlusion: No, lesion at bifurcation: No, thrombus present: No, lesion length: 12 mm, culprit lesion: Yes, Previously treated lesion: No Pre Stenosis: 80 % Pre intervention DHAVAL flow: 3 PROCEDURE: Drug Eluting Stent Stent in the LAD appeared to alf the D1. After stent deployment in the LAD the stent struts were crossed and kising balloon inflation was performed with 3.5 nc balloon and 2.5mm balloon in the D1 inflated to 10 blaine. Post Stenosis: 0 % Post intervention DHAVAL flow: 3 Lesion Devices: Cardinal 6 Fr XB3.0 100cm Guide Catheter Terumo .014 Runthrough Extra Floppy 180cm straight Biotronik Orsiro [place] MR CAM[place] 3.0x15 Mandeep Sci EMERGE MR 2.50x12 BALLOON COMPLICATIONS No Complications PROCEDURE MEDICATIONS Fentanyl 50 mcg IV Oxygen: 2 L/min via nasal cannula Heparin given IA 04/23/2022 09:11:13 Verapamil 2.5mg, Ntg 100mcgs, 3000 units of Heparin given IA 04/23/2022 09:11:13 SUMMARY OF HEMODYNAMIC DATA Time AIR REST ECG 08:25:36 Art 181/80 (116) 08:38:51 AO 163/86 (118) SA 09:13:08 AO 176/85 (123) 10:01:36 LV 176/6, 29 10:05:37 LV 157/7, 26 10:05:44 LV 171/8, 33 10:06:22 LVp 176/3, 29 10:06:28 AOp 177/7 (76) 10:06:34 LVp 175/6, 35 10:06:39 AOp 168/85 (120) 10:06:44 AO 178/95 (131) 10:06:55 Signed By Johnson Fontana MD On 04/23/2022 11:17:14 Johnson Fontana MD
[2022-04-23 12:39] LABS: Troponin-I HS 84920 pg/mL (3.0-78.0)
--- NOTE | 2022-04-23 13:25 | RAD_ITS ---
STUDY: X-RAY CHEST REASON FOR EXAM: Male, 67 years old. Chest pressure, sob TECHNIQUE: Single AP portable view of the chest. COMPARISON: None. FINDINGS: EKG electrodes are seen. Mild increase in linear markings at the bases suggestive of a mild scarring. Hyperinflation. There is no demonstrated pleural abnormality. Normal size heart. Normal mediastinum and samuel. Normal visualized pulmonary arteries. There is atherosclerotic tortuosity of the aortic arch and descending thoracic aorta. Normal visualized thoracic spine. Normal visualized ribs, clavicles, and shoulders. There is no demonstrated abnormality of the visualized soft tissue structures of the upper abdomen. RAD/Chest 1 View (Portable) IMPRESSION: Hyperinflation. Mild increased linear markings at the lung bases suggestive of mild scarring. Electronically Signed: Aden Mcdermott MD at 15:40 EDT ,
--- NOTE | 2022-04-23 13:40 | PCM.CONS.C ---
Assessment & Plan Assessment/Plan (1) ST elevation (STEMI) myocardial infarction: PLAN: Status post PCI to LAD and diagonal 1. We will keep the patient on aspirin, Brilinta, statin, beta-rgicel and MICAH inhibitor. He will need staged PCI to the circumflex during this admission and RCA in about 4 weeks. (2) LV dysfunction: PLAN: Starting the patient on Coreg and lisinopril. We should get a 2D echo during this admission and also repeated in about 3 months. HPI Consult Data Date of Consult: 04/23/22 HPI Narrative Reason for Consultation: STEMI HPI Narrative: HUSSEIN ATKINS, is a 67 M who presents with chest pain that started about 2 hours prior to presentation. In the emergency room patient was found to have anterolateral ST elevation AL and a STEMI alert was called. Patient was evaluated prior to cardiac catheterization. He then underwent coronary angiography which revealed 99% stenosis in the proximal LAD that was treated with thrombectomy and drug-eluting stent placement. He also had an 80% stenosis in the diagonal 1 that was treated with drug-eluting stent. He has residual disease in the circumflex and RCA that will be treated in a staged manner. Patient is chest pain-free at the end of the procedure. He is being admitted to the CCU for further management of his ST elevation AL. He does have an EF of 35 to 40%. PFSH Medical History COPD (chronic obstructive pulmonary disease) Hypertension Myocardial infarct Sciatica Smoker Home Medications cholecalciferol (vitamin D3) 25 mcg (1,000 unit) capsule (Vitamin D3) 1,000 unit PO DAILY supplement 07/14/17 [History Last Taken 04/22/22] amlodipine 10 mg tablet (Norvasc) 10 mg PO DAILY blood pressure 04/23/22 [History Last Taken 04/22/22] Allergy/AdvReac Type Severity Reaction Status Date / Time No Known Allergies Allergy Verified 04/23/22 08:23 Surgical History S/P AAA repair Social History current gender identity: male Smoking Status: Heavy Smoker (>10/day) Physical Exam Const alert and oriented x3 Eyes no scleral icterus Cardio regular rate and regular rhythm Skin no rashes or lesions noted Psych mental status grossly normal Risk Stratification Risk Stratification Applicable: No Charges/Coding Visit Charges Inpatient E&M: 70533 Init Hosp L1 Objective Data Vital Signs: Vital Signs Temp Pulse Resp BP Pulse Ox O2 Del Method 97.7 F L 73 22 H 162/98 H 97 Room Air 04/23/22 12:00 04/23/22 13:00 04/23/22 13:00 04/23/22 13:00 04/23/22 13:00 04/23/22 13:00 Oxygen Delivery Method Room Air Weight: 166 lb 0.129 oz Body Mass Index (BMI) 23.8 Intake & Output: Intake and Output for Last 24 Hours 04/21/22 04/22/22 04/23/22 23:59 23:59 23:59 Intake Total 480 / 480 Output Total 350 / 350 Balance 130 / 130 Lab / Micro Data Result Diagrams: 04/23/22 08:15 04/23/22 08:15 Labs: Laboratory Results - last 24 hr 04/23/22 08:15: WBC 15.4 H, RBC 5.68, Hgb 16.6 H, Hct 49.5, MCV 87.1, MCH 29.2, MCHC 33.5, RDW Std Deviation 46.1 H, RDW Coeff of Renata 14.4, Plt Count 278, MPV 9.1, Immature Gran % (Auto) 0.600, Neut % (Auto) 78.9 H, Lymph % (Auto) 13.2 L, [place] % (Auto) 6.5, Eos % (Auto) 0.5, Baso % (Auto) 0.3, Absolute Neuts (auto) 12.2 H, Absolute Lymphs (auto) 2.03, Nucleated RBC % 0 04/23/22 08:15: PT 13.4, INR 1.1, APTT 28.2 04/23/22 08:15: Sodium 139, Potassium 3.4 L, Chloride 108 H, Carbon Dioxide 24.0, Anion Gap 7, BUN 17, Creatinine 0.92, Estim Creat Clear Calc 79.35, Est GFR (MDRD) Af Amer 105, Est GFR (MDRD) Non-Af 87, BUN/Creatinine Ratio 18.5, Glucose 137 H, Calcium 10.0, Troponin I High Sens 1862 H* 04/23/22 08:15: Phosphorus 1.9 L, Magnesium 2.4, Total Bilirubin 0.80, Direct Bilirubin 0.16, AST 30, ALT 20, Alkaline Phosphatase 40 L, Total Protein 8.0, Albumin 4.4, Globulin 3.6 04/23/22 10:55: Troponin I High Sens 19948 H* Cardiology Labs/Tests 04/23/22 08:15: WBC 15.4 H, RBC 5.68, Hgb 16.6 H, Hct 49.5, MCV 87.1, MCH 29.2, MCHC 33.5, Plt Count 278, MPV 9.1, Immature Gran % (Auto) 0.600, Neut % (Auto) 78.9 H, Lymph % (Auto) 13.2 L, [place] % (Auto) 6.5, Eos % (Auto) 0.5, Baso % (Auto) 0.3, Absolute Neuts (auto) 12.2 H, Nucleated RBC % 0 04/23/22 08:15: PT 13.4, INR 1.1, APTT 28.2 04/23/22 08:15: Sodium 139, Potassium 3.4 L, Chloride 108 H, Carbon Dioxide 24.0, Anion Gap 7, BUN 17, Creatinine 0.92, Est GFR (MDRD) Af Amer 105, Est GFR (MDRD) Non-Af 87, BUN/Creatinine Ratio 18.5, Glucose 137 H, Calcium 10.0 04/23/22 08:15: Phosphorus 1.9 L, Magnesium 2.4, Total Bilirubin 0.80, Direct Bilirubin 0.16 Rhythm: EKG: ECHO: Stress Test: Cardiac Cath: PCI: CT Surgery: Holter monitor: EPS: PPM: CXR: Chest CT Scan:
[2022-04-23] MEDS: proCHLORPERazine 10 MG/2 ML Vial IV (13:49)
--- NOTE | 2022-04-23 14:31 | CRPHASE1 ---
Patient Communication PHII Cardiac Rehab Discussed with Patient:: Yes Guide to Cardiac Rehab Given to Patient:: Yes Cardiac Rehab Facility Choice List Given to Patient:: Yes Choice Program [facility] CR PHII:: Communication Given to CR Choice Program Other:: Communication Given to CR Telephone Service Representative:: Kathryn Fontana Refer Phase II Cardiac Rehab:: Yes Sessions:: 36 sessions - 3 days/wk, 12 weeks Cardiac Rehabilitation Info Cardiac Rehabilitation Program Information: Cardiac Rehabilitation is important for patients like you who are recovering from a heart problem. Cardiac rehabilitation programs are recognized as integral to the continued care of the patient with coronary heart disease. The cardiac rehabilitation program is designed to optimize a patient's physical, psychological, and social functioning. Health nurse behavioral health care work in cardiac rehabilitation programs and assist you with getting the treatments you need to get stronger and healthier - like exercise, healthy eating habits, and medications. Cardiac rehabilitation has been show to help people with heart problems live longer and have better life enjoyment than people who do not go to cardiac rehabilitation. Please contact the Cardiac Rehabilitation Program at [facility] at in two weeks if you have not heard from them.
--- NOTE | 2022-04-23 14:32 | CRPH1.INST_ITS ---
General Education CAD and cardiac anatomy and function:: Patient communicates acknowledgment Explanation of diagnoses and procedures:: Patient communicates acknowledgment Sign/Symptoms of SC:: Patient communicates acknowledgment Antiplatelet therapy: Patient communicates acknowledgment Smoking Patient Nicotine/Smoking Risk Factors Are:: Cigarettes Recommendations Include:: Smoking cessation strategies/Smoking packet, Second- hand smoke recommendation, Participation in a smoking cessation program Nicotine/Smoking Response Code:: Patient communicates acknowledgment Dyslipidemia Patient Dyslipidemia Risk Factors Are:: Total Cholesterol, Triglycerides, HDL, LDL Recommendations Include:: Lipid profile provided, Reviewed NCEP/ATP guidelines, Therapeutic Lifestyle Change dietary guidelines Dyslipidemia Response Code:: Patient communicates acknowledgment Overweight/Obesity Patient Overweight/Obesity Risk Factors Are:: BMI Normal [18-25 & < 65 years old] Recommendations Include:: Weight loss of 5-10%, Reduced calorie diet, Exercise 5-7 times/week Overweight/Obesity:: Patient communicates acknowledgment Hypertension Recommendations Include:: Maintain BP <130/85, DASH dietary guidelines, Decrease/maintain normal body weight, Moderation of ETOH Hypertension:: Patient communicates acknowledgment Diabetes Patient Diabetes Risk Factors Are:: No documented hx of diabetes Metabolic Syndrome Patient Metabolic Syndrome Risk Factors Are [3 of 5]:: Fasting blood sugar > 100 mg/dL, Waist circumference > 35 [female] or 40 [male], High triglyceride >150, Hypertension, Low HDL <40 [male] or < 50 [female] Recommendations Include:: Reinforce compliance to risk factor modifications, Encouraged follow-up with Primary Care Physician Metabolic Syndrome Response Code:: Patient communicates acknowledgment Sedentary Patient Sedentary Risk Factors Are:: Lack of regular exercise Recommendations Include:: Aerobic exercise 5-7 times/week for 20-30 minutes continuously, Benefits of regular exercise, Discussed home walking program, Monitored Outpatient Cardiac Rehab Sedentary Response Code:: Patient communicates acknowledgment Stress Patient Stress Risk Factors Are:: Patient denies stress as a risk factor Recommendations Include:: Identification of stressors, and assessment of coping skills, Stress management techniques Stress Response Code:: Patient communicates acknowledgment
[2022-04-23 15:52] LABS: Troponin-I HS > 125000 pg/mL (3.0-78.0)
[2022-04-23] MEDS: amLODIPine 10 MG Tablet PO (17:15)
[2022-04-23] MEDS: Calcium Carbonate 500 MG Tablet PO (19:19)
[2022-04-23] MEDS: TICAGRELOR 90 MG TABLET PO (21:13)
[2022-04-23] MEDS: Atorvastatin Calcium 40 MG Tablet PO (21:14)
[2022-04-24] VITALS (20 sets, daily range): BP systolic 105–157; BP diastolic 60–91; PULSE 52–74; RESP 16–22; TEMP 36.6–37.1; O2SAT 95–100
[2022-04-24 03:41] LABS: Absolute Lymphocyte Count 1.57 X10^3/uL (0.83-4.51); Absolute Neutrophil Count 15.1 X10^3/uL (2.0-7.7); Basophil# 0.02 X10^3/uL; Basophil% 0.1 % (0-1); Eosinophil# 0.01 X10^3/uL; Eosinophils% 0.1 % (0-5); Hematocrit 43.3 % (40-54); Hemoglobin 14.8 g/dL (13.0-16.5); Lymphocyte # 1.57 X10^3/ul (0.83-4.51); Lymphocyte % 8.5 % (19-41); Mean Corp Hgb Conc 34.2 g/dL (32-36); Mean Corpuscular Hgb 29.1 pg (27.0-32.0); Mean Corpuscular Volume 85.1 fL (80-94); Mean Platelet Vol. 8.8 fl (6.2-12.0); Monocyte# 1.81 X10^3/uL; Monocyte% 9.8 % (0-10); NRBC Flagged by Analyzer 0 % (0-5); Neutrophil # 15.06 X10^3/uL (2.7-7.7); POSITIVE DIFFERENTIAL YES; Platelet Count 236 K/mm3 (150-450); RBC Distribution Width CV 14.4 % (11.6-14.6); RBC Distribution Width SD 44.2 fl (35.1-43.9); Red Blood Count 5.09 M/mm3 (4.6-6.2); White Blood Count 18.6 K/mm3 (4.4-11.0)
[2022-04-24 03:59] LABS: Differential Indicated SCAN CRITERIA MET
[2022-04-24 04:10] LABS: ALB/GLOB Ratio 1.1 RATIO (0.9-2.4); AST(SGOT) 196 U/L (15-37); Alanine Aminotransfer ALT/SGPT 57 U/L (16-61); Albumin, Serum 3.5 g/dL (3.2-5.0); Alkaline Phosphatase 32 U/L (45-117); Anion Gap 8 (5-15); BUN 16 mg/dL (7-18); BUN/Creat Ratio 25.4 RATIO (10-20); Calcium,Total 8.7 mg/dL (8.5-10.1); Chloride 108 mmol/L (98-107); Cholesterol 205 mg/dL (200); Creatinine, Serum 0.63 mg/dL (0.70-1.30); EST Glomerular Filtration Rate 135 mL/min (>60); Est Glom Filt Rate - Afr Amer 163 mL/min (>60); Globulin 3.1 g/dL (2.2-4.2); Glucose 113 mg/dL (74-106); High Density Lipoprotein 35 mg/dL; Potassium 3.6 mmol/L (3.5-5.1); Protein, Total 6.6 g/dL (6.4-8.2); Sodium Level 138 mmol/L (136-145); Triglycerides 179 mg/dL; Very Low Density Lipoprotein 36 mg/dL (5-40)
--- NOTE | 2022-04-24 07:14 | PCM.PN.HOSP ---
Objective Data Objective Data Vital Signs: Vital Signs Temp Pulse Resp BP Pulse Ox O2 Del Method 98.4 F 65 18 124/75 H 96 Room Air 04/24/22 04:00 04/24/22 07:00 04/24/22 07:00 04/24/22 07:00 04/24/22 07:00 04/24/22 07:00 Oxygen Delivery Method Room Air Weight: 165 lb 4.8 oz Body Mass Index (BMI) 23.8 Intake & Output: Intake and Output for Last 24 Hours 04/22/22 04/23/22 04/24/22 23:59 23:59 23:59 Intake Total 2007.0033 / 2007.0033 400 / 400 Output Total 1400 / 1400 100 / 100 Balance 608.0033 / 608.0033 300 / 300 Lab / Micro Data Result Diagrams: 04/24/22 03:30 04/24/22 03:30 Labs: Laboratory Results - last 24 hr 04/23/22 08:15: WBC 15.4 H, RBC 5.68, Hgb 16.6 H, Hct 49.5, MCV 87.1, MCH 29.2, MCHC 33.5, RDW Std Deviation 46.1 H, RDW Coeff of Renata 14.4, Plt Count 278, MPV 9.1, Immature Gran % (Auto) 0.600, Neut % (Auto) 78.9 H, Lymph % (Auto) 13.2 L, Coffee % (Auto) 6.5, Eos % (Auto) 0.5, Baso % (Auto) 0.3, Absolute Neuts (auto) 12.2 H, Absolute Lymphs (auto) 2.03, Nucleated RBC % 0 04/23/22 08:15: PT 13.4, INR 1.1, APTT 28.2 04/23/22 08:15: Sodium 139, Potassium 3.4 L, Chloride 108 H, Carbon Dioxide 24.0, Anion Gap 7, BUN 17, Creatinine 0.92, Estim Creat Clear Calc 79.35, Est GFR (MDRD) Af Amer 105, Est GFR (MDRD) Non-Af 87, BUN/Creatinine Ratio 18.5, Glucose 137 H, Calcium 10.0, Troponin I High Sens 1862 H* 04/23/22 08:15: Phosphorus 1.9 L, Magnesium 2.4, Total Bilirubin 0.80, Direct Bilirubin 0.16, AST 30, ALT 20, Alkaline Phosphatase 40 L, Total Protein 8.0, Albumin 4.4, Globulin 3.6 04/23/22 10:55: Troponin I High Sens 55188 H* 04/23/22 14:50: Troponin I High Sens > [id number] H* 04/24/22 03:30: WBC 18.6 H, RBC 5.09, Hgb 14.8, Hct 43.3, MCV 85.1, MCH 29.1, MCHC 34.2, RDW Std Deviation 44.2 H, RDW Coeff of Renata 14.4, Plt Count 236, MPV 8.8, Immature Gran % (Auto) 0.500, Neut % (Auto) 81.0 H, Lymph % (Auto) 8.5 L, Coffee % (Auto) 9.8, Eos % (Auto) 0.1, Baso % (Auto) 0.1, Absolute Neuts (auto) 15.1 H, Absolute Lymphs (auto) 1.57, Nucleated RBC % 0, Diff Path Review December04/24/22 03:30: Sodium 138, Potassium 3.6, Chloride 108 H, Carbon Dioxide 22.0, Anion Gap 8, BUN 16, Creatinine 0.63 L, Estim Creat Clear Calc 73.00, Est GFR (MDRD) Af Amer 163, Est GFR (MDRD) Non-Af 135, BUN/Creatinine Ratio 25.4 H, Glucose 113 H, Calcium 8.7, Total Bilirubin 0.80, AST 196 H, ALT 57, Alkaline Phosphatase 32 L, Total Protein 6.6, Albumin 3.5, Globulin 3.1, Albumin/Globulin Ratio 1.1, Triglycerides 179, Cholesterol 205 H, LDL Cholesterol 134 H, VLDL Cholesterol 36, HDL Cholesterol 35 L, TSH 1.10 Radiography Diagnostic Testing: Radiology Impression Chest X-Ray 04/23/22 13:25 IMPRESSION: Hyperinflation. Mild increased linear markings at the lung bases suggestive of mild scarring. Electronically Signed: Aden Mcdermott MD at 15:40 EDT , Physical Exam Narrative Seen and examined. client relationship executive reviewed few PVCs, occasional 3 beats NSVT. No palpitation. No chest pain. General: Alert, Oriented x3, Cooperative. HEENT: Atraumatic, PERRLA, EOMI, Normocephalic Oral: No Gingival or Mucosal Lesions/ Ulcerations Neck: Supple, No JVD, Negative Carotid Bruits Lungs: Air entry diminished in bilateral lung bases. No crepitation/rhonchi Cardiovascular: Regular rate, Regular Rhythm, Normal S1, Normal S2, No murmurs Abdomen: Bowel Sounds Present, Soft, Non Tender, Non-Distended : No renal angle tenderness. No suprapubic tenderness. Extremities: No edema, Capillary Refill Less than 3 Seconds Skin: No rashes, No breakdown Musculoskeletal: No Tenderness to Palpation of Joints or Extremities Neurological: Cranial nerves II-XII grossly intact, DTR 2+/4 and Symmetrical, Neuro grossly intact Psych/Mental Status: Normal Affect, Appropriate. Assessment & Plan Assessment/Plan (1) ST elevation (STEMI) myocardial infarction: PLAN: Plan This 67-year-old gentleman admitted with chest pain lasted for 2 hours and diagnosed anterolateral STEMI on the basis of acute EKG 1. Anterolateral STEMI: Patient is admitted in ICU after cardiac cath. Chest pain/angina has resolved. Discussed with the specialist icu. Patient had PCI and 2 stents in the LAD and D1 which was more like a branch segment. Patient also has a long segment of circumflex which will need PCI probably on coming Friday on 04/26/2022. Formal cardiac cath report pending. Patient has other stenosis in the RCA which can be done as an outpatient. On IV fluid for 6 hours to prevent MARYURI. On aspirin, Brilinta, beta-gricel, lisinopril and high intensity atorvastatin. Troponins are high. Discussed with the patient's . 04/24: Production Clerks Supervisor consult reviewed. Proximal LAD 99% stenosis, 80% restenosis in diagonal 1 that was treated with thrombectomy and drug-eluting stent. Residual disease in circumflex recommended staged PCI during this admission and RCA in about after 4 weeks. EF 35 to 40%. Troponins are high as expected. Leukocytosis due to STEMI as inflammatory response. Fasting profile profile LDL 134, TC 205, TG 179 and HDL 35. TSH normal. 2D echo done and report pending. Discussed with the specialist icu. Patient is being transferred to PCU. 2. Electrolyte abnormality: Hypokalemia and hypophosphatemia: Electrolytes are getting replaced. Repeat potassium 3.6, phosphorus 2.9. 3. Hyperglycemia: Glucose is 137 in BMP. 04/24: A1c 5.4%. 4. Hypertension, uncontrolled: Most recent blood pressures show systolic in 150s. Patient on lisinopril and amlodipine. 5. AAA repair with a stent in 2019 6. Presumable diagnosis of COPD: Patient will need PFT as an outpatient. DuoNeb as needed for shortness of breath. Chest x-ray ordered. VTE prophylaxis: Lovenox 40 minutes of daily after 24 hours of cardiac cath. Bilateral SCD Living will/advanced directive/end of life care: Patient does have living will or advanced directive. His is power of civil rights attorney for health. After discussion of benefits/risks procedures involved with full code, DNR CC arrest and DNR CC, the patient and the opted for full code. Patient does want artificial life support including intubation, tube feed, ventilator and/chest compression, central venous catheter, vasopressor and DC shock if needed Total time spent in [id number] encounter in discussion of advanced directive 16 minutes. Total time of the visit including total time spent in counseling or coordination of care, (more than 50% of the total time, spent in obtaining medical information from nurses and other ancillary care providers,explaining to the patient about labs, imaging, diagnosis and management of active complex medical conditions), discussion with specialist icu., review of labs and imaging is 40 minutes. Charges/Coding Visit Charges Inpatient E&M: 85460 [facility] L3
--- NOTE | 2022-04-24 07:19 | ECHOCS_ITS ---
Reason For Study: STEMI Procedure This was a 2D Doppler, Color Flow transthoracic echocardiogram. Exam performed in department. Left Ventricle Normal LV size. The estimated ejection fraction is 45 %. There is evidence of diastolic dysfunction. hypokinesis of the apex and septum. Right Ventricle Normal RV size. Normal systolic function. Atria Normal left atrium. Normal right atrium. No doppler evidence for ASD. Mitral Valve There is no mitral valve stenosis. No mitral valve insufficiency. Tricuspid Valve There is no tricuspid stenosis. Unable to estimate RV systolic pressure due to insufficient tricuspid regurgitant envelope. Trivial tricuspid valve insufficiency. Aortic Valve Trisinus/trileaflet aortic valve. There is no aortic stenosis. No aortic valve insufficiency. Pulmonic Valve There is no pulmonic valvular stenosis. No pulmonic valve insufficiency. Great Vessels Normal aortic root. Pericardium/Pleural No pericardial effusion. MMode/2D Measurements & Calculations LVIDd: 5.0 cm IVSd: 1.2 cm Ao root diam: 3.7 cm LVIDs: 3.7 cm LVPWd: 1.2 cm RVDd: 3.0 cm FS: 25.3 % LAV(MOD-bp): 50.8 ml LVAd ap4: 36.8 cm2 LVAd ap2: 26.8 cm2 LAV(MOD-bp) Indexed: 26.4 ml/m2 LVLd ap4: 8.8 cm LVLd ap2: 8.4 cm LAV(MOD-sp2): 50.7 ml EDV(MOD-sp4): 126.5 ml EDV(MOD-sp2): 75.3 ml LAV(MOD-sp4): 46.8 ml EDV(sp4-el): 130.6 ml EDV(sp2-el): 72.6 ml LVAs ap4: 27.5 cm2 LVAs ap2: 19.6 cm2 LVLs ap4: 7.9 cm LVLs ap2: 7.2 cm ESV(MOD-sp4): 80.8 ml ESV(MOD-sp2): 45.5 ml ESV(sp4-el): 81.8 ml ESV(sp2-el): 45.3 ml EF(MOD-sp4): 36.1 % EF(MOD-sp2): 39.6 % EF(sp4-el): 37.4 % SV(MOD-sp4): 45.7 ml SV(MOD-sp2): 29.8 ml SV(sp4-el): 48.8 ml LA dimension(2D): 3.7 cm LA A4 area: 16.1 cm2 RA A4 area: 17.3 cm2 Doppler Measurements & Calculations Ao V2 max: 124.3 cm/sec LV V1 max: 123.3 cm/sec PA V2 max: 84.8 cm/sec Ao max P.2 mmHg LV V1 max P.1 mmHg ECHO/Echo Complete W/ Contrast Interpretation Summary The estimated ejection fraction is 45 %. There is evidence of diastolic dysfunction. hypokinesis of the apex and septum Ordering Physician: Aime Hummel Referring Physician: Kathryn Fontana Performed By: Lisa Cano, JOSE GUADALUPE, RVT
[2022-04-24] MEDS: Aspirin E.C. 81 MG Tablet PO (08:20)
[2022-04-24 08:50] LABS: Phosphorus 2.9 mg/dL (2.5-4.9)
[2022-04-24 09:59] LABS: Hemoglobin A1c 5.4 % (3.8-5.6)
--- NOTE | 2022-04-24 10:00 | CASEMGMT ---
RN CM Face to Face with patient for initial transition planning/care coordination assessment. RN CM introduced self and role at [facility]. Patient lying in bed, alert and oriented, at beside. Patient willing to participate in assessment and is able to answer all questions appropriately. Care providers, pharmacy, and demographics verified. Patient wishes to discharge home, denies need for home health at this time. Patient states he has no further needs or concerns at this time. CM to follow for discharge planning needs that may arise. PCP: Hector Specialists: none Preferred Pharmacy: [facility] Insurance: Migue Haney Prescription Benefit: yes, Brilinta savings card provided to patient Living Will/HPOA: yes, Bhavana Dunbar. Copies provided and filed in chart. LNOK: Living Arrangements: Patient lives with in a 2 story home with bed and bath on first floor. 2 steps to enter the home. Patient states he is independent at home Transportation: self, DME/HHC: Patient denies DME or previous HHC. Disposition Plan: Patient to discharge home with family support and follow-up plans in place. Dianne VIDAL, RN, CM
--- NOTE | 2022-04-24 10:00 | EKG12_ITS ---
Test Reason : AM EKG Blood Pressure : / mmHG Vent. Rate : 060 BPM Atrial Rate : 060 BPM P-R Int : 152 ms QRS Dur : 096 ms QT Int : 486 ms P-R-T Axes : 065 -83 090 degrees QTc Int : 486 ms Normal sinus rhythm Left axis deviation Anteroseptal infarct , possibly acute T wave abnormality, consider lateral ischemia ACUTE [place] / STEMI Abnormal ECG Confirmed by YULIANA RAUSCH, ROBSON ([id number]), associate editor LUIZ HADDAD ([id number]) on 04/25/2022 9:52:50 AM Referred By: Kathryn Fontana Confirmed By:ROBSON BRIDGES MD
[2022-04-24] MEDS: Cholecalciferol (VIT D3) 25 MCG TABLET (1,000 UNITS) PO (10:23)
[2022-04-24] MEDS: Carvedilol 6.25 MG Tablet PO ×2 (10:24→21:12)
[2022-04-24] MEDS: Lisinopril 5 MG Tablet PO (10:24)
[2022-04-24] MEDS: TICAGRELOR 90 MG TABLET PO ×2 (10:24→21:12)
[2022-04-24] MEDS: Enoxaparin 40 MG/0.4 ML Syringe SC (10:24)
--- NOTE | 2022-04-24 11:16 | PN.CARD_ITS ---
Subjective Subjective Patient is doing. Denies any cardiac complaints. No significant overnight events. Objective Data Vital Signs: Vital Signs Temp Pulse Resp BP Pulse Ox O2 Del Method 97.9 F 57 L 19 H 136/74 H 95 Room Air 04/24/22 08:00 04/24/22 08:00 04/24/22 08:00 04/24/22 08:00 04/24/22 10:09 04/24/22 10:09 Oxygen Delivery Method Room Air Weight: 165 lb 4.8 oz Body Mass Index (BMI) 23.8 Intake & Output: Intake and Output for Last 24 Hours 04/22/22 04/23/22 04/24/22 23:59 23:59 23:59 Intake Total 2007.0033 / 2007.0033 400 / 400 Output Total 1400 / 1400 200 / 200 Balance 608.0033 / 608.0033 200 / 200 Lab / Micro Data Result Diagrams: 04/24/22 03:30 04/24/22 03:30 Labs: Laboratory Results - last 24 hr 04/23/22 10:55: Troponin I High Sens 53654 H* 04/23/22 14:50: Troponin I High Sens > 676224 H* 04/24/22 03:30: WBC 18.6 H, RBC 5.09, Hgb 14.8, Hct 43.3, MCV 85.1, MCH 29.1, MCHC 34.2, RDW Std Deviation 44.2 H, RDW Coeff of Renata 14.4, Plt Count 236, MPV 8.8, Immature Gran % (Auto) 0.500, Neut % (Auto) 81.0 H, Lymph % (Auto) 8.5 L, [place] % (Auto) 9.8, Eos % (Auto) 0.1, Baso % (Auto) 0.1, Absolute Neuts (auto) 15.1 H, Absolute Lymphs (auto) 1.57, Nucleated RBC % 0, Diff Path Review December04/24/22 03:30: Sodium 138, Potassium 3.6, Chloride 108 H, Carbon Dioxide 22.0, Anion Gap 8, BUN 16, Creatinine 0.63 L, Estim Creat Clear Calc 73.00, Est GFR (MDRD) Af Amer 163, Est GFR (MDRD) Non-Af 135, BUN/Creatinine Ratio 25.4 H, Glucose 113 H, Calcium 8.7, Total Bilirubin 0.80, AST 196 H, ALT 57, Alkaline Phosphatase 32 L, Total Protein 6.6, Albumin 3.5, Globulin 3.1, Albumin/Globulin Ratio 1.1, Triglycerides 179, Cholesterol 205 H, LDL Cholesterol 134 H, VLDL Cholesterol 36, HDL Cholesterol 35 L, TSH 1.10 04/24/22 03:30: Hemoglobin A1c 5.4 04/24/22 03:30: Phosphorus 2.9 Cardiology Labs/Tests 04/24/22 03:30: WBC 18.6 H, RBC 5.09, Hgb 14.8, Hct 43.3, MCV 85.1, MCH 29.1, MCHC 34.2, Plt Count 236, MPV 8.8, Immature Gran % (Auto) 0.500, Neut % (Auto) 81.0 H, Lymph % (Auto) 8.5 L, [place] % (Auto) 9.8, Eos % (Auto) 0.1, Baso % (Auto) 0.1, Absolute Neuts (auto) 15.1 H, Nucleated RBC % 0 04/24/22 03:30: Sodium 138, Potassium 3.6, Chloride 108 H, Carbon Dioxide 22.0, Anion Gap 8, BUN 16, Creatinine 0.63 L, Est GFR (MDRD) Af Amer 163, Est GFR (MDRD) Non-Af 135, BUN/Creatinine Ratio 25.4 H, Glucose 113 H, Calcium 8.7, Total Bilirubin 0.80, Triglycerides 179, Cholesterol 205 H, LDL Cholesterol 134 H, VLDL Cholesterol 36, HDL Cholesterol 35 L 04/24/22 03:30: Hemoglobin A1c 5.4 04/24/22 03:30: Phosphorus 2.9 Rhythm: EKG: ECHO: Stress Test: Cardiac Cath: PCI: CT Surgery: Holter monitor: EPS: PPM: CXR: Chest CT Scan: Radiography Diagnostic Testing: Radiology Impression Chest X-Ray 04/23/22 13:25 IMPRESSION: Hyperinflation. Mild increased linear markings at the lung bases suggestive of mild scarring. Electronically Signed: Aden Mcdermott MD at 15:40 EDT , Physical Exam Const alert and oriented x3 Eyes no scleral icterus Neck no JVD Resp clear to auscultation bilaterally Cardio regular rate and regular rhythm Extremity no pedal edema Skin no rashes or lesions noted Psych mental status grossly normal Assessment & Plan Assessment/Plan (1) ST elevation (STEMI) myocardial infarction: PLAN: Status post PCI to LAD and diagonal 1. We will keep the patient on aspirin, Brilinta, statin, beta-gricel and MICAH inhibitor. He will need staged PCI to the circumflex during this admission, likely on Friday and RCA in about 4 weeks. Okay to transfer the patient to PCU (2) LV dysfunction: PLAN: Compensated. 2D echo pending. Continue present management. Charges/Coding Visit Charges Inpatient E&M: 62840 Subs Hosp L2
[2022-04-24] MEDS: Na Biphos/Potassium Phosphate PACKET 1 PACKET PO ×3 (12:06→21:12)
[2022-04-24] MEDS: amLODIPine 10 MG Tablet PO (12:06)
[2022-04-24] MEDS: Atorvastatin Calcium 40 MG Tablet PO (21:12)
[2022-04-24] MEDS: Famotidine 20 MG Tablet PO (21:13)
[2022-04-25] VITALS (10 sets, daily range): BP systolic 105–159; BP diastolic 68–87; PULSE 60–70; RESP 14–18; TEMP 36.3–37.1; O2SAT 96–99; BMI 23.6
[2022-04-25] MEDS: Na Biphos/Potassium Phosphate PACKET 1 PACKET PO ×3 (06:09→22:05)
[2022-04-25 06:56] LABS: Absolute Lymphocyte Count 1.95 X10^3/uL (0.83-4.51); Absolute Neutrophil Count 11.1 X10^3/uL (2.0-7.7); Basophil# 0.04 X10^3/uL; Basophil% 0.3 % (0-1); Eosinophil# 0.03 X10^3/uL; Eosinophils% 0.2 % (0-5); Hematocrit 47.3 % (40-54); Hemoglobin 16.1 g/dL (13.0-16.5); Lymphocyte # 1.95 X10^3/ul (0.83-4.51); Lymphocyte % 13.2 % (19-41); Mean Corpuscular Volume 85.1 fL (80-94); Mean Platelet Vol. 9.5 fl (6.2-12.0); Monocyte# 1.56 X10^3/uL; Monocyte% 10.6 % (0-10); NRBC Flagged by Analyzer 0 % (0-5); Neutrophil # 11.13 X10^3/uL (2.7-7.7); Neutrophil % 75.3 % (47-70); POSITIVE DIFFERENTIAL YES; Platelet Count 265 K/mm3 (150-450); RBC Distribution Width CV 14.2 % (11.6-14.6); RBC Distribution Width SD 43.8 fl (35.1-43.9); Red Blood Count 5.56 M/mm3 (4.6-6.2); White Blood Count 14.8 K/mm3 (4.4-11.0)
[2022-04-25 07:00] LABS: Differential Indicated SCAN CRITERIA MET
[2022-04-25 07:21] LABS: Anion Gap 7 (5-15); BUN 17 mg/dL (7-18); BUN/Creat Ratio 26.9 RATIO (10-20); Calcium,Total 8.9 mg/dL (8.5-10.1); Chloride 104 mmol/L (98-107); Creatinine, Serum 0.63 mg/dL (0.70-1.30); EST Glomerular Filtration Rate 134 mL/min (>60); Est Glom Filt Rate - Afr Amer 162 mL/min (>60); Glucose 98 mg/dL (74-106); Potassium 3.3 mmol/L (3.5-5.1); Sodium Level 136 mmol/L (136-145)
[2022-04-25 07:30] LABS: Differential Comment SCANNED
[2022-04-25] MEDS: Aspirin E.C. 81 MG Tablet PO (09:03)
[2022-04-25] MEDS: Enoxaparin 40 MG/0.4 ML Syringe SC (09:04)
[2022-04-25] MEDS: Famotidine 20 MG Tablet PO ×2 (09:04→22:06)
[2022-04-25] MEDS: Lisinopril 5 MG Tablet PO (09:04)
[2022-04-25] MEDS: TICAGRELOR 90 MG TABLET PO ×2 (09:04→22:05)
[2022-04-25] MEDS: amLODIPine 10 MG Tablet PO (09:04)
[2022-04-25] MEDS: Cholecalciferol (VIT D3) 25 MCG TABLET (1,000 UNITS) PO (09:04)
[2022-04-25] MEDS: Carvedilol 6.25 MG Tablet PO ×2 (09:04→22:05)
[2022-04-25 09:55] LABS: Pathologist Review Reviewed
--- NOTE | 2022-04-25 10:00 | EKG12_ITS ---
Test Reason : AM EKG Blood Pressure : / mmHG Vent. Rate : 066 BPM Atrial Rate : 066 BPM P-R Int : 140 ms QRS Dur : 096 ms QT Int : 462 ms P-R-T Axes : 064 269 086 degrees QTc Int : 484 ms Normal sinus rhythm Right superior axis deviation Anteroseptal infarct , possibly acute T wave abnormality, consider lateral ischemia ACUTE [place] / STEMI Abnormal ECG When compared with ECG of 24-APR-2022 05:18, MANUAL COMPARISON REQUIRED, DATA IS UNCONFIRMED Confirmed by TOM RAUSCH, EDUARDO ([id number]), television news video editor LUZI HADDAD ([id number]) on 04/25/2022 1:30:44 PM Referred By: Kathryn Fontana Confirmed By:REYNOLD FONTANA MD
--- NOTE | 2022-04-25 13:44 | PCM.PN.HOSP ---
Subjective Subjective No acute symptoms. Shortness no shortness of breath or chest pain. business performance specialist shows sinus rhythm. Vitals in acceptable range. Objective Data Objective Data Vital Signs: Vital Signs Temp Pulse Resp BP Pulse Ox O2 Del Method 98.1 F 70 16 129/86 H 99 Room Air 04/25/22 09:30 04/25/22 11:04 04/25/22 09:30 04/25/22 09:30 04/25/22 09:30 04/25/22 09:30 Oxygen Delivery Method Room Air Weight: 164 lb 7.437 oz Body Mass Index (BMI) 23.8 Intake & Output: Intake and Output for Last 24 Hours 04/23/22 04/24/22 04/25/22 23:59 23:59 23:59 Intake Total 2007.0033 / 2007.0033 775 / 1175 640 / 640 Output Total 1400 / 1400 200 / 200 Balance 608.0033 / 608.0033 575 / 975 640 / 640 Lab / Micro Data Result Diagrams: 04/25/22 05:50 04/25/22 05:50 Labs: Laboratory Results - last 24 hr 04/24/22 03:30: Diff Path Review Reviewed 04/25/22 05:50: WBC 14.8 H, RBC 5.56, Hgb 16.1, Hct 47.3, MCV 85.1, MCH 29.0, MCHC 34.0, RDW Std Deviation 43.8, RDW Coeff of Renata 14.2, Plt Count 265, MPV 9.5, Immature Gran % (Auto) 0.400, Neut % (Auto) 75.3 H, Lymph % (Auto) 13.2 L, [place] % (Auto) 10.6 H, Eos % (Auto) 0.2, Baso % (Auto) 0.3, Absolute Neuts (auto) 11.1 H, Absolute Lymphs (auto) 1.95, Nucleated RBC % 0, Differential Comment SCANNED, Diff Path Review December04/25/22 05:50: Sodium 136, Potassium 3.3 L, Chloride 104, Carbon Dioxide 25.0, Anion Gap 7, BUN 17, Creatinine 0.63 L, Estim Creat Clear Calc 73.00, Est GFR (MDRD) Af Amer 162, Est GFR (MDRD) Non-Af 134, BUN/Creatinine Ratio 26.9 H, Glucose 98, Calcium 8.9 Radiography Diagnostic Testing: Radiology Impression Echocardiogram 04/24/22 07:19 Interpretation Summary The estimated ejection fraction is 45 %. There is evidence of diastolic dysfunction. hypokinesis of the apex and septum Ordering Physician: Aime Hummel Referring Physician: Kathryn Fontana Performed By: Lisa Cano, RDMIGUEL, RVT Physical Exam Narrative Seen and examined. business performance specialist reviewed few PVCs. No palpitation. General: Alert, Oriented x3, Cooperative. HEENT: Atraumatic, PERRLA, EOMI, Normocephalic Oral: No Gingival or Mucosal Lesions/ Ulcerations Neck: Supple, No JVD, Negative Carotid Bruits Lungs: Air entry diminished in bilateral lung bases. No crepitation/rhonchi Cardiovascular: Regular rate, Regular Rhythm, Normal S1, Normal S2, No murmurs Abdomen: Bowel Sounds Present, Soft, Non Tender, Non-Distended : No renal angle tenderness. No suprapubic tenderness. Extremities: No edema, Capillary Refill Less than 3 Seconds Skin: No rashes, No breakdown Musculoskeletal: No Tenderness to Palpation of Joints or Extremities Neurological: Cranial nerves II-XII grossly intact, DTR 2+/4 and Symmetrical, Neuro grossly intact Psych/Mental Status: Normal Affect, Appropriate. Assessment & Plan Assessment/Plan (1) ST elevation (STEMI) myocardial infarction: PLAN: Plan This 67-year-old gentleman admitted with chest pain lasted for 2 hours and diagnosed anterolateral STEMI on the basis of acute EKG 1. Anterolateral STEMI: Patient is admitted in ICU after cardiac cath. Chest pain/angina has resolved. Discussed with the biometrics experimentalist. Patient had PCI and 2 stents in the LAD and D1 which was more like a branch segment. Patient also has a long segment of circumflex which will need PCI probably on coming Friday on 04/26/2022. Formal cardiac cath report pending. Patient has other stenosis in the RCA which can be done as an outpatient. On IV fluid for 6 hours to prevent MARYURI. On aspirin, Brilinta, beta-gricel, lisinopril and high intensity atorvastatin. Troponins are high. Discussed with the patient's . 04/24: Sleeve Ironer consult reviewed. Proximal LAD 99% stenosis, 80% restenosis in diagonal 1 that was treated with thrombectomy and drug-eluting stent. Residual disease in circumflex recommended staged PCI during this admission and RCA in about after 4 weeks. EF 35 to 40%. Troponins are high as expected. Leukocytosis due to STEMI as inflammatory response. Fasting profile profile LDL 134, TC 205, TG 179 and HDL 35. TSH normal. 2D echo done and report pending. Discussed with the biometrics experimentalist. Patient is being transferred to PCU. 04/25: Echo EF 45%, hypokinesis of apex and septum. Diastolic dysfunction. Overall it suggestive of acute systolic and diastolic heart failure most probably due to STEMI. TSH normal. 2. Electrolyte abnormality: Hypokalemia and hypophosphatemia: Electrolytes are getting replaced. Repeat potassium 3.6, phosphorus 2.9. 3. Hyperglycemia: Glucose is 137 in BMP. 04/24: A1c 5.4%. 4. Hypertension, uncontrolled: Most recent blood pressures show systolic in 150s. Patient on lisinopril and amlodipine. 5. AAA repair with a stent in 2019 6. Presumable diagnosis of COPD: Patient will need PFT as an outpatient. DuoNeb as needed for shortness of breath. Chest x-ray ordered. VTE prophylaxis: Lovenox 40 MG of daily after 24 hours of cardiac cath. Bilateral SCD Living will/advanced directive/end of life care: Patient does have living will or advanced directive. His is power of attorney law clerk for health. After discussion of benefits/risks procedures involved with full code, DNR CC arrest and DNR CC, the patient and the opted for full code. Patient does want artificial life support including intubation, tube feed, ventilator and/chest compression, central venous catheter, vasopressor and DC shock if needed Total time spent in [id number] encounter in discussion of advanced directive 16 minutes. Charges/Coding Visit Charges Inpatient E&M: 95914 Subs Hosp L2
[2022-04-25] MEDS: CHLORHEXIDINE GLUC 2% CLOTH 1 EACH TOWELETTE TOPICAL (14:46)
[2022-04-25] MEDS: Atorvastatin Calcium 40 MG Tablet PO (22:05)
[2022-04-26] VITALS (18 sets, daily range): BP systolic 98–123; BP diastolic 64–78; PULSE 55–72; RESP 16–18; TEMP 36.2–37.2; O2SAT 94–98
[2022-04-26] MEDS: amLODIPine 10 MG Tablet PO (05:53)
[2022-04-26] MEDS: Aspirin E.C. 81 MG Tablet PO (05:53)
[2022-04-26] MEDS: TICAGRELOR 90 MG TABLET PO ×2 (05:53→20:56)
--- NOTE | 2022-04-26 05:55 | EKG12_ITS ---
Test Reason : NSTEMI Blood Pressure : / mmHG Vent. Rate : 055 BPM Atrial Rate : 055 BPM P-R Int : 146 ms QRS Dur : 098 ms QT Int : 472 ms P-R-T Axes : 062 -83 095 degrees QTc Int : 451 ms Sinus bradycardia Left axis deviation Anteroseptal infarct (cited on or before 23-APR-2022) T wave abnormality, consider lateral ischemia ACUTE [place] / STEMI Abnormal ECG Confirmed by TOM RAUSCH, EDUARDO ([id number]), senior technical editor LUIZ HADDAD ([id number]) on 05/03/2022 2:22:49 PM Referred By: Kathryn Fontana Confirmed By:REYNOLD FONTANA MD
[2022-04-26] MEDS: Lisinopril 5 MG Tablet PO (05:56)
[2022-04-26 06:34] LABS: Absolute Lymphocyte Count 1.55 X10^3/uL (0.83-4.51); Absolute Neutrophil Count 6.8 X10^3/uL (2.0-7.7); Basophil# 0.05 X10^3/uL; Basophil% 0.5 % (0-1); Eosinophil# 0.13 X10^3/uL; Eosinophils% 1.3 % (0-5); Hematocrit 47.3 % (40-54); Hemoglobin 15.6 g/dL (13.0-16.5); Lymphocyte # 1.55 X10^3/ul (0.83-4.51); Lymphocyte % 15.5 % (19-41); Mean Corpuscular Hgb 28.8 pg (27.0-32.0); Mean Corpuscular Volume 87.4 fL (80-94); Mean Platelet Vol. 9.2 fl (6.2-12.0); Monocyte# 1.39 X10^3/uL; Monocyte% 13.9 % (0-10); NRBC Flagged by Analyzer 0 % (0-5); Neutrophil # 6.81 X10^3/uL (2.7-7.7); Platelet Count 227 K/mm3 (150-450); RBC Distribution Width CV 14.5 % (11.6-14.6); RBC Distribution Width SD 45.8 fl (35.1-43.9); Red Blood Count 5.41 M/mm3 (4.6-6.2)
[2022-04-26 07:07] LABS: Anion Gap 8 (5-15); BUN 25 mg/dL (7-18); BUN/Creat Ratio 28.4 RATIO (10-20); Calcium,Total 9.5 mg/dL (8.5-10.1); Chloride 105 mmol/L (98-107); Creatinine, Serum 0.88 mg/dL (0.70-1.30); EST Glomerular Filtration Rate 91 mL/min (>60); Est Glom Filt Rate - Afr Amer 111 mL/min (>60); Estimated Creatinine Clearance 82.95 ml/min; Glucose 90 mg/dL (74-106); Potassium 3.4 mmol/L (3.5-5.1); Sodium Level 137 mmol/L (136-145)
[2022-04-26 09:23] LABS: Pathologist Review Reviewed
--- NOTE | 2022-04-26 11:30 | EKG12_ITS ---
Test Reason : post cath Blood Pressure : / mmHG Vent. Rate : 066 BPM Atrial Rate : 066 BPM P-R Int : 138 ms QRS Dur : 086 ms QT Int : 484 ms P-R-T Axes : 069 258 089 degrees QTc Int : 507 ms Sinus rhythm with Premature atrial complexes Possible Left atrial enlargement Right superior axis deviation Septal infarct , age undetermined T wave abnormality, consider anterolateral ischemia Prolonged QT Abnormal ECG Confirmed by YULIANA RAUSCH, ROBSON ([id number]), editorial writer LUIZ HADDAD ([id number]) on 04/30/2022 8:01:20 AM Referred By: Kathryn Fontana Confirmed By:ROBSON BRIDGES MD
--- NOTE | 2022-04-26 11:48 | CL.I_ITS ---
Patient Name: HUSSEIN ATKINS Study Date: 04/26/2022 Performing: Johnson Fontana MD Ht: 70 inches 177.8 cm : 1955 Wt: 164.7 lbs 74.6 kg Age: 67 Gender: male BSA: 1.92 PROCEDURE(S) PERFORMED IC12-(07070/C9600)CAMDEN W/WO PTCA, SINGLE CORONARY ARTERY CLINICAL PROFILE AND CO-MORBIDITIES Indications: Staged PCI of LCx Heart Failure: None CONCLUSIONS Successful CAMDEN to mLCx RECOMMENDATIONS Pt. should return for staged PCI of dRCA in about 4 weeks DESCRIPTION OF PROCEDURE The patient arrived to the procedure lab. The risks and benefits of the procedure as well as a full description of our services here and current unavailability of surgical backup were fully explained to the patient and/or their significant other prior to the catheterization. The Timeout was completed, verifying the correct patient and procedure. The patient's procedural site was prepped and draped in the usual fashion. Local anesthetic was given subcutaneously to right radial region with Lidocaine 2%. Using a modified Seldinger technique, arterial access was obtained via the right radial artery, a 6Fr sheath was inserted.. XB 3.5 Guide catheter was inserted and engaged into the LCA. BMW Guide wire was advanced to the Circumflex. 3.5 x 20 Emerge Balloon catheter was inserted. Balloon catheter was advanced across lesion in the circumflex, mid. Angiogram performed pre balloon dilatation. PTCA balloon inflated at 10 atms for 15 secs. PTCA balloon inflated at 10 atms for 20 secs. 4.0 x 35 Orsiro Drug Eluting stent was inserted. Drug Eluting stent was advanced across the lesion in the circumflex, mid. Angiogram performed pre stent deployment. Angiogram performed post stent deployment. 4.5 x 15 NC Emerge Balloon catheter was inserted post stent. Angiogram performed post balloon dilatation. The arterial sheath was pulled and a TR Band was applied for hemostasis. 10cc air inserted. INTERVENTION INFORMATION LESION SITE: Circumflex (Mid) Lesion Complexity: High/C, chronic total occlusion: No, lesion at bifurcation: Yes, thrombus present: No, lesion length: 32 mm, culprit lesion: Yes, Previously treated lesion: No Pre Stenosis: 95 % Pre intervention DHAVAL flow: 3 PROCEDURE: Drug Eluting Stent with pre and post dilatation Post Stenosis: 0 % Post intervention DHAVAL flow: 3 Lesion Devices: Santos .014 BMW [place] Straight 190cm Cardinal 6 Fr XB3.5 100cm Guide Catheter Mandeep Sci EMERGE MR 3.50x20 BALLOON Biotronik Orsiro [place] MR CAM[place] 4.0x35 Mandeep Sci NC EMERGE MR 4.50x15 BALLOON COMPLICATIONS No Complications PROCEDURE MEDICATIONS Fentanyl 50 mcg IV Versed 1 mg IV Oxygen: 2 L/min via nasal cannula Heparin given IA 04/26/2022 10:50:03 Heparin 2000 unit(s) IV 04/26/2022 10:50:07 Verapamil 2.5mg, Ntg 100mcgs, 3000 units of Heparin given IA 04/26/2022 10:50:03 SUMMARY OF HEMODYNAMIC DATA Time AIR REST ECG 10:38:56 AO 97/68 (81) SA 10:54:12 Signed By Johnson Fontana MD On 04/26/2022 11:52:56 Johnson Fontana MD
--- NOTE | 2022-04-26 13:17 | CRPHASE1 ---
Patient Communication PHII Cardiac Rehab Discussed with Patient:: Yes Guide to Cardiac Rehab Given to Patient:: Yes Cardiac Rehab Facility Choice List Given to Patient:: Yes Choice Program [facility] CR PHII:: Communication Given to CR Choice Program Other:: Communication Given to CR General Manager Oracle Data Cloud:: Kathryn Fontana Refer Phase II Cardiac Rehab:: Yes Cardiac Rehabilitation Info Cardiac Rehabilitation Program Information: Cardiac Rehabilitation is important for patients like you who are recovering from a heart problem. Cardiac rehabilitation programs are recognized as integral to the continued care of the patient with coronary heart disease. The cardiac rehabilitation program is designed to optimize a patient's physical, psychological, and social functioning. Health child care giver work in cardiac rehabilitation programs and assist you with getting the treatments you need to get stronger and healthier - like exercise, healthy eating habits, and medications. Cardiac rehabilitation has been show to help people with heart problems live longer and have better life enjoyment than people who do not go to cardiac rehabilitation. Please contact the Cardiac Rehabilitation Program at [facility] at in two weeks if you have not heard from them.
--- NOTE | 2022-04-26 13:18 | CRPH1.INSTRU ---
General Education CAD and cardiac anatomy and function:: Patient communicates acknowledgment Explanation of diagnoses and procedures:: Patient communicates acknowledgment Sign/Symptoms of IA:: Patient communicates acknowledgment Antiplatelet therapy: Patient communicates acknowledgment - pt staged procedure 2 of 2 Smoking Patient Nicotine/Smoking Risk Factors Are:: Cigarettes Recommendations Include:: Smoking cessation strategies/Smoking packet, Participation in a smoking cessation program Nicotine/Smoking Response Code:: Patient communicates acknowledgment Dyslipidemia Patient Dyslipidemia Risk Factors Are:: Total Cholesterol, Triglycerides, HDL, LDL Recommendations Include:: Lipid profile provided, Reviewed NCEP/ATP guidelines, Therapeutic Lifestyle Change dietary guidelines Dyslipidemia Response Code:: Patient communicates acknowledgment Overweight/Obesity Patient Overweight/Obesity Risk Factors Are:: BMI Normal [24-29 & > 65 years old] Hypertension Recommendations Include:: Maintain BP <130/85, DASH dietary guidelines, Decrease/maintain normal body weight, Moderation of ETOH Hypertension:: Patient communicates acknowledgment Diabetes Patient Diabetes Risk Factors Are:: No documented hx of diabetes Sedentary Patient Sedentary Risk Factors Are:: Lack of regular exercise Recommendations Include:: Aerobic exercise 5-7 times/week for 20-30 minutes continuously, Benefits of regular exercise, Discussed home walking program, Monitored Outpatient Cardiac Rehab Sedentary Response Code:: Patient communicates acknowledgment Stress Recommendations Include:: Identification of stressors, and assessment of coping skills, Stress management techniques Stress Response Code:: Patient communicates acknowledgment
[2022-04-26] MEDS: Na Biphos/Potassium Phosphate PACKET 1 PACKET PO ×2 (14:03→20:56)
--- NOTE | 2022-04-26 15:48 | PCM.PN.HOSP ---
Subjective Subjective Seen and examined. Patient had staged cardiac cath about noon today. Patient had repeat cardiac cath from right radial artery access site. Mild bruise at the site of enoxaparin subcutaneous injection at lower abdominal region. No active bleeding. Objective Data Objective Data Vital Signs: Vital Signs Temp Pulse Resp BP Pulse Ox O2 Del Method 97.4 F L 69 16 98/64 96 Room Air 04/26/22 13:50 04/26/22 15:25 04/26/22 13:50 04/26/22 13:50 04/26/22 13:50 04/26/22 13:50 Oxygen Delivery Method Room Air Weight: 164 lb 7.437 oz Body Mass Index (BMI) 23.6 Intake & Output: Intake and Output for Last 24 Hours 04/24/22 04/25/22 04/26/22 23:59 23:59 23:59 Intake Total 775 / 1175 640 / 640 Output Total 200 / 200 Balance 575 / 975 640 / 640 Lab / Micro Data Result Diagrams: 04/26/22 05:52 04/26/22 05:52 Labs: Laboratory Results - last 24 hr 04/25/22 05:50: Diff Path Review Reviewed 04/26/22 05:52: WBC 10.0, RBC 5.41, Hgb 15.6, Hct 47.3, MCV 87.4, MCH 28.8, MCHC 33.0, RDW Std Deviation 45.8 H, RDW Coeff of Renata 14.5, Plt Count 227, MPV 9.2, Immature Gran % (Auto) 0.800, Neut % (Auto) 68.0, Lymph % (Auto) 15.5 L, [place] % (Auto) 13.9 H, Eos % (Auto) 1.3, Baso % (Auto) 0.5, Absolute Neuts (auto) 6.8, Absolute Lymphs (auto) 1.55, Nucleated RBC % 0 04/26/22 05:52: Sodium 137, Potassium 3.4 L, Chloride 105, Carbon Dioxide 24.0, Anion Gap 8, BUN 25 H, Creatinine 0.88, Estim Creat Clear Calc 82.95, Est GFR (MDRD) Af Amer 111, Est GFR (MDRD) Non-Af 91, BUN/Creatinine Ratio 28.4 H, Glucose 90, Calcium 9.5 Physical Exam Narrative Seen and examined. laboratory monitor reviewed few PVCs. No palpitation. General: Alert, Oriented x3, Cooperative. HEENT: Atraumatic, PERRLA, EOMI, Normocephalic Oral: No Gingival or Mucosal Lesions/ Ulcerations Neck: Supple, No JVD, Negative Carotid Bruits Lungs: Air entry diminished in bilateral lung bases. No crepitation/rhonchi Cardiovascular: Regular rate, Regular Rhythm, Normal S1, Normal S2, No murmurs Abdomen: Bowel Sounds Present, Soft, Non Tender, Non-Distended : No renal angle tenderness. No suprapubic tenderness. Extremities: No edema, Capillary Refill Less than 3 Seconds Skin: Mild subcutaneous bruise over lower abdomen from enoxaparin subcutaneous injection. No active bleeding. Musculoskeletal: No Tenderness to Palpation of Joints or Extremities Neurological: Cranial nerves II-XII grossly intact, DTR 2+/4 and Symmetrical, Neuro grossly intact Psych/Mental Status: Normal Affect, Appropriate. Assessment & Plan Assessment/Plan (1) ST elevation (STEMI) myocardial infarction: PLAN: Plan This 67-year-old gentleman admitted with chest pain lasted for 2 hours and diagnosed anterolateral STEMI on the basis of acute EKG 1. Anterolateral STEMI: Patient is admitted in ICU after cardiac cath. Chest pain/angina has resolved. Discussed with the profiling machine set up operator tool. Patient had PCI and 2 stents in the LAD and D1 which was more like a branch segment. Patient also has a long segment of circumflex which will need PCI probably on coming Friday on 04/26/2022. Formal cardiac cath report pending. Patient has other stenosis in the RCA which can be done as an outpatient. On IV fluid for 6 hours to prevent MARYURI. On aspirin, Brilinta, beta-gricel, lisinopril and high intensity atorvastatin. Troponins are high. Discussed with the patient's . 04/24: Vp Hr Diversity consult reviewed. Proximal LAD 99% stenosis, 80% restenosis in diagonal 1 that was treated with thrombectomy and drug-eluting stent. Residual disease in circumflex recommended staged PCI during this admission and RCA in about after 4 weeks. EF 35 to 40%. Troponins are high as expected. Leukocytosis due to STEMI as inflammatory response. Fasting profile profile LDL 134, TC 205, TG 179 and HDL 35. TSH normal. 2D echo done and report pending. Discussed with the profiling machine set up operator tool. Patient is being transferred to PCU. 04/25: Echo EF 45%, hypokinesis of apex and septum. Diastolic dysfunction. Overall it suggestive of acute systolic and diastolic heart failure most probably due to STEMI. TSH normal. 04/26: Patient had staged procedure, PCI done on circumflex artery. No major hematoma at radial artery access site 2. Electrolyte abnormality: Hypokalemia and hypophosphatemia: Electrolytes are getting replaced. Repeat potassium 3.6, phosphorus 2.9. 3. Hyperglycemia: Glucose is 137 in BMP. 04/24: A1c 5.4%. 04/26: Glucose is normal, 90 mg/dL 4. Hypertension, uncontrolled: Most recent blood pressures show systolic in 150s. Patient on lisinopril and amlodipine. 04/26: BP is controlled. Mild on lower side 110/71, 98/64. Amlodipine decreased to 5 mg daily. Continue lisinopril Will holding parameters 5. AAA repair with a stent in 2019 6. Presumable diagnosis of COPD: Patient will need PFT as an outpatient. DuoNeb as needed for shortness of breath. Chest x-ray ordered. VTE prophylaxis: Lovenox 40 MG of daily after 24 hours of cardiac cath. Bilateral SCD Living will/advanced directive/end of life care: Patient does have living will or advanced directive. His is power of real estate associate attorney for health. After discussion of benefits/risks procedures involved with full code, DNR CC arrest and DNR CC, the patient and the opted for full code. Patient does want artificial life support including intubation, tube feed, ventilator and/chest compression, central venous catheter, vasopressor and DC shock if needed Total time spent in [id number] encounter in discussion of advanced directive 16 minutes. Charges/Coding Visit Charges Inpatient E&M: 53928 Subs Hosp L2
[2022-04-26] MEDS: Famotidine 20 MG Tablet PO (20:56)
[2022-04-26] MEDS: Atorvastatin Calcium 40 MG Tablet PO (20:57)
[2022-04-26] MEDS: Carvedilol 6.25 MG Tablet PO (20:57)
[2022-04-27 03:00] VITALS: PULSE 58
[2022-04-27 04:55] VITALS: BP 99/65; PULSE 62; RESP 16; TEMP 36.2; O2SAT 97
--- NOTE | 2022-04-27 05:05 | EKG12_ITS ---
Test Reason : NSTEMI Blood Pressure : / mmHG Vent. Rate : 056 BPM Atrial Rate : 056 BPM P-R Int : 138 ms QRS Dur : 100 ms QT Int : 480 ms P-R-T Axes : 067 -89 095 degrees QTc Int : 463 ms Sinus bradycardia Left axis deviation Anteroseptal infarct , possibly acute T wave abnormality, consider lateral ischemia ACUTE VT / STEMI Abnormal ECG Confirmed by TOM RAUSCH, EDUARDO ([id number]), sports editor LUIZ HADDAD ([id number]) on 05/03/2022 2:24:55 PM Referred By: Kathryn Fontana Confirmed By:REYNOLD FONTANA MD
[2022-04-27] MEDS: Na Biphos/Potassium Phosphate PACKET 1 PACKET PO (06:18)
[2022-04-27 07:01] VITALS: PULSE 59
[2022-04-27 07:20] LABS: Hematocrit 46.8 % (40-54); Hemoglobin 15.8 g/dL (13.0-16.5); Mean Corp Hgb Conc 33.8 g/dL (32-36); Mean Corpuscular Hgb 29.2 pg (27.0-32.0); Mean Corpuscular Volume 86.5 fL (80-94); Mean Platelet Vol. 9.5 fl (6.2-12.0); Platelet Count 252 K/mm3 (150-450); RBC Distribution Width CV 14.3 % (11.6-14.6); RBC Distribution Width SD 44.9 fl (35.1-43.9); Red Blood Count 5.41 M/mm3 (4.6-6.2); White Blood Count 11.8 K/mm3 (4.4-11.0)
[2022-04-27 07:52] LABS: ALB/GLOB Ratio 1.1 RATIO (0.9-2.4); AST(SGOT) 38 U/L (15-37); Alanine Aminotransfer ALT/SGPT 29 U/L (16-61); Albumin, Serum 3.6 g/dL (3.2-5.0); Alkaline Phosphatase 35 U/L (45-117); Anion Gap 7 (5-15); BUN 42 mg/dL (7-18); BUN/Creat Ratio 39.3 RATIO (10-20); Calcium,Total 9.3 mg/dL (8.5-10.1); Chloride 103 mmol/L (98-107); Creatinine, Serum 1.07 mg/dL (0.70-1.30); EST Glomerular Filtration Rate 73 mL/min (>60); Est Glom Filt Rate - Afr Amer 88 mL/min (>60); Estimated Creatinine Clearance 68.22 ml/min; Globulin 3.3 g/dL (2.2-4.2); Glucose 93 mg/dL (74-106); Potassium 3.6 mmol/L (3.5-5.1); Protein, Total 6.9 g/dL (6.4-8.2); Sodium Level 137 mmol/L (136-145)
--- NOTE | 2022-04-27 08:13 | DCINST_ITS ---
Discharge Instructions Diet Discharge Diet: Low fat / Low cholesterol and 2000 mg Sodium Diet Activity Discharge Activity: Return to Normal Activity Weight Bearing Status: Weight bearing as tolerated Lifting Restrictions: No heavy lifting from right hand for 5 days. Dressing / Incision Call your doctor if you observe: Fever of 101 or Higher, Coldness, Increased Pain, Numbness or Tingling, Change in Color, Inability to urinate, Inability to have a bowel movement, Shortness of breath, Dizziness, Fainting spells, Swelling in the ankles, Chest pain, Prolonged hiccupping, Increased palpitations (irregular heartbeat) and Calf discomfort Follow Up Care Test Results: Test results from this visit will be discussed in further detail at your follow- up appointment, if applicable. Discharge Plan Admission Admit Date/Time: 04/23/22 08:27 Primary Reason for Your Visit: Anteolateral wall STEMI Attending Provider: Aime Hummel Primary Care Provider: Adi Young Consulting Providers: Kathryn Fontana Discharge Orders/Prescriptions Prescriptions: New atorvastatin 40 mg Tablet 40 mg PO QHS Qty: 30 2RF carvedilol 6.25 mg Tablet 6.25 mg PO BID Qty: 60 2RF Rx Instructions: Hold for heart less than 60 or systolic blood pressure less than 100 mmHg. aspirin 81 mg Tablet,Delayed Release (Dr/Ec) 81 mg PO DAILY@0800 Qty: 90 1RF nitroglycerin 0.4 mg Tablet, Sublingual 0.4 mg sublingual Q5M PRN (Reason: Cardiac/Chest Pain) Qty: 30 0RF lisinopril 5 mg Tablet 5 mg PO DAILY Qty: 30 2RF Rx Instructions: Hold for SBP less than 120 mmHg. If BP is low in systolic 100, decreased dose of lisinopril 2.5 mg daily Brilinta 90 mg Tablet 90 mg PO BID Qty: 60 2RF sennosides-docusate sodium [Stool Softener-Stimulant Laxat] 8.6-50 mg Tablet 2 tab PO BID PRN (Reason: Constipation) Qty: 0 0RF Rx Instructions: [id number] Continued cholecalciferol (vitamin D3) [Vitamin D3] 1,000 UNIT capsule 1,000 unit PO DAILY Discontinued amlodipine [Norvasc] 10 mg tablet 10 mg PO DAILY Referrals / Follow Up: Adi Young DO [Primary Care Provider] - Within 1 Week Kathryn Fontana MD [Med Staff - Active Staff] - Within 2 Weeks (for STEMI and staged procedure 4 weeks) Disposition Disposition (needs filled in before D/C Order can be placed): Home, Self Care
[2022-04-27] MEDS: Cholecalciferol (VIT D3) 25 MCG TABLET (1,000 UNITS) PO (08:38)
[2022-04-27] MEDS: Famotidine 20 MG Tablet PO (08:38)
[2022-04-27] MEDS: TICAGRELOR 90 MG TABLET PO (08:38)
[2022-04-27] MEDS: Aspirin E.C. 81 MG Tablet PO (08:38)
[2022-04-27] MEDS: Carvedilol 6.25 MG Tablet PO (08:38)
--- NOTE | 2022-04-27 08:55 | PCM.DC.SUM ---
Providers Date of Admission: 04/23/22 Date of Discharge: 04/27/22 Primary Care Physician: Dr. Adi Young, Consultations 04/23/22 10:30 Consult: Cardiology Routine Consulting Provider: Kathryn Fontana Reason for Consult: stemi EMERGENT Consult: No MD Notified: Yes Date Notified: 04/23/22 Time Notified: 08:30 Method of Notification: ED Physician Initiated Reason For Visit: STEMI Diagnosis Discharge Diagnosis (1) ST elevation (STEMI) myocardial infarction: Status: Acute Code(s): I21.3 - ST elevation (STEMI) myocardial infarction of unspecified site Medications at Discharge Home Medications cholecalciferol (vitamin D3) 25 mcg (1,000 unit) capsule (Vitamin D3) 1,000 unit PO DAILY supplement 07/14/17 aspirin 81 mg tablet,delayed release 81 mg PO DAILY@0800 #90 tabs 04/27/22 atorvastatin 40 mg tablet 40 mg PO QHS #30 tabs 04/27/22 carvedilol 6.25 mg tablet 6.25 mg PO BID #60 tabs 04/27/22 lisinopril 5 mg tablet 5 mg PO DAILY #30 tabs 04/27/22 nitroglycerin 0.4 mg sublingual tablet 0.4 mg sublingual Q5M PRN Cardiac/Chest Pain #30 tabs 04/27/22 sennosides 8.6 mg-docusate sodium 50 mg tablet (Stool Softener-Stimulant Laxative) 2 tab PO BID PRN Constipation #0 tabs 04/27/22 ticagrelor 90 mg tablet (Brilinta) 90 mg PO BID #60 tabs 04/27/22 Hospital Course Summary of Care Provided Hospital Course: This 67-year-old gentleman admitted with chest pain lasted for 2 hours and diagnosed anterolateral STEMI on the basis of acute EKG 1. Anterolateral STEMI: Patient is admitted in ICU after cardiac cath. Chest pain/angina has resolved. Discussed with the assembling motor builder. Patient had PCI and 2 stents in the LAD and D1 which was more like a branch segment. Patient also has a long segment of circumflex which will need PCI probably on coming Friday on 04/26/2022. Patient has other stenosis in the RCA which can be done as an outpatient. On IV fluid for 6 hours to prevent MARYURI. On aspirin, Brilinta, beta-pablito, lisinopril and high intensity atorvastatin. Troponins are high. Discussed with the patient's . 04/24: Detail Technician consult reviewed. Proximal LAD 99% stenosis, 80% restenosis in diagonal 1 that was treated with thrombectomy and drug-eluting stent. Residual disease in circumflex recommended staged PCI during this admission and RCA in about after 4 weeks. EF 35 to 40%. Troponins are high as expected. Leukocytosis due to STEMI as inflammatory response. Fasting profile profile LDL 134, TC 205, TG 179 and HDL 35. TSH normal. 2D echo done and report pending. Discussed with the assembling motor builder. Patient is being transferred to PCU. 04/25: Echo EF 45%, hypokinesis of apex and septum. Diastolic dysfunction. Overall it suggestive of acute systolic and diastolic heart failure most probably due to STEMI. TSH normal. 04/26: Patient had staged procedure, PCI done on circumflex artery. No major hematoma at radial artery access site. 04/27: No right radial artery hematoma. Pulses are palpable. No palpable thrill or bruit. No chest pain or shortness of breath. site monitor sinus rhythm. Discussed with assembling motor builder Dr. Fontana. Follow-up in 2 weeks to discuss and plan for staged procedure after 4 weeks. STEMI protocol to follow for cardiac rehab 2. Electrolyte abnormality: Hypokalemia and hypophosphatemia: Electrolytes are getting replaced. Repeat potassium 3.6, phosphorus 2.9. 3. Hyperglycemia: Glucose is 137 in BMP. 04/24: A1c 5.4%. 04/26: Glucose is normal, 90 mg/dL 04/27 diabetes mellitus ruled out. 4. Hypertension, uncontrolled: Most recent blood pressures show systolic in 150s. Patient on lisinopril and amlodipine. 04/26: BP is controlled. Mild on lower side 110/71, 98/64. Continue lisinopril WITH holding parameters. 04/27 blood pressure in lower range, systolic in 100s. Amlodipine discontinued. Discussed the medication dose with the patient and his . On lisinopril 5 mg daily. Advised to cut down to 2.5 mg if systolic blood pressure is less than 120. Carvedilol 6.25 mg twice daily; hold for heart rate less than 60 or SBP less than 100 mmHg 6.25 mg twice daily with holding parameter. 5. AAA repair with a stent in 2020 6. Presumable diagnosis of COPD: Patient will need PFT as an outpatient. DuoNeb as needed for shortness of breath. Chest x-ray ordered. VTE prophylaxis: Lovenox 40 MG of daily after 24 hours of cardiac cath. Bilateral SCD Discharge medication reconciliation done. Discharge follow-up instructions completed. Discharge process discussed with the patient and all questions were answered to patient's satisfaction. [facility] Total time spent, exact 35 minutes on discharge meds reconciliation, examination, coordination of care with nurses and ancillary staff, review of imaging and blood test and discussion with the patient on follow-up instructions. Living will/advanced directive/end of life care: Patient does have living will or advanced directive. His is power of traffic law attorney for health. After discussion of benefits/risks procedures involved with full code, DNR CC arrest and DNR CC, the patient and the opted for full code. Patient does want artificial life support including intubation, tube feed, ventilator and/chest compression, central venous catheter, vasopressor and DC shock if needed Total time spent in [id number] encounter in discussion of advanced directive 16 minutes. Physical Exam Narrative Seen and examined. site monitor reviewed, sinus rhythm with occasional PVC. No chest pain or shortness of breath. General: Alert, Oriented x3, Cooperative. HEENT: Atraumatic, PERRLA, EOMI, Normocephalic Oral: No Gingival or Mucosal Lesions/ Ulcerations Neck: Supple, No JVD, Negative Carotid Bruits Lungs: Air entry diminished in bilateral lung bases. No crepitation/rhonchi Cardiovascular: Regular rate, Regular Rhythm, Normal S1, Normal S2, No murmurs Abdomen: Bowel Sounds Present, Soft, Non Tender, Non-Distended : No renal angle tenderness. No suprapubic tenderness. Extremities: No hematoma, palpable thrill or audible bruit. No edema, Capillary Refill Less than 3 Seconds Skin: Mild subcutaneous bruise over lower abdomen from enoxaparin subcutaneous injection. No active bleeding. Musculoskeletal: No Tenderness to Palpation of Joints or Extremities Neurological: Cranial nerves II-XII grossly intact, DTR 2+/4 and Symmetrical, Neuro grossly intact Psych/Mental Status: Normal Affect, Appropriate. Weight / BMI Weight Weight: 162 lb 14.746 oz Body Mass Index (BMI) 23.6 ABG / Lab / Microbiology Data Result Diagrams: 04/27/22 06:12 04/27/22 06:12 Laboratory: Laboratory Results - last 24 hr 04/25/22 05:50: Diff Path Review Reviewed 04/27/22 06:12: WBC 11.8 H, RBC 5.41, Hgb 15.8, Hct 46.8, MCV 86.5, MCH 29.2, MCHC 33.8, RDW Std Deviation 44.9 H, RDW Coeff of Renata 14.3, Plt Count 252, MPV 9.5 04/27/22 06:12: Sodium 137, Potassium 3.6, Chloride 103, Carbon Dioxide 27.0, Anion Gap 7, BUN 42 H, Creatinine 1.07, Estim Creat Clear Calc 68.22, Est GFR (MDRD) Af Amer 88, Est GFR (MDRD) Non-Af 73, BUN/Creatinine Ratio 39.3 H, Glucose 93, Calcium 9.3, Total Bilirubin 0.70, AST 38 H, ALT 29, Alkaline Phosphatase 35 L, Total Protein 6.9, Albumin 3.6, Globulin 3.3, Albumin/Globulin Ratio 1.1 D/C Instructions Discharge Diet: Low fat / Low cholesterol and 2000 mg Sodium Diet Weight Bearing Status: Weight bearing as tolerated Call your doctor if you observe: Fever of 101 or Higher, Coldness, Increased Pain, Numbness or Tingling, Change in Color, Inability to urinate, Inability to have a bowel movement, Shortness of breath, Dizziness, Fainting spells, Swelling in the ankles, Chest pain, Prolonged hiccupping, Increased palpitations (irregular heartbeat) and Calf discomfort Meaningful Use Info Meaningful Use Diagnoses (Choose all that apply): AMI AMI/Post PCI/Angioplasty Aspirin given w/in 24hrs of arrival?: Yes ASA at discharge?: Yes Statins at discharge?: Yes Aubrey/ARB at discharge?: Yes Beta Pablito at discharge?: Yes Done w/ Acute MD measure.: Yes Discharge Plan Admission Admit Date/Time: 04/23/22 08:27 Primary Reason for Your Visit: Anteolateral wall STEMI Attending Provider: Aime Hummel Primary Care Provider: Adi Young Consulting Providers: Kathryn Fontana Discharge Orders/Prescriptions Prescriptions: New atorvastatin 40 mg Tablet 40 mg PO QHS Qty: 30 2RF carvedilol 6.25 mg Tablet 6.25 mg PO BID Qty: 60 2RF Rx Instructions: Hold for heart less than 60 or systolic blood pressure less than 100 mmHg. aspirin 81 mg Tablet,Delayed Release (Dr/Ec) 81 mg PO DAILY@0800 Qty: 90 1RF nitroglycerin 0.4 mg Tablet, Sublingual 0.4 mg sublingual Q5M PRN (Reason: Cardiac/Chest Pain) Qty: 30 0RF lisinopril 5 mg Tablet 5 mg PO DAILY Qty: 30 2RF Rx Instructions: Hold for SBP less than 120 mmHg. If BP is low in systolic 100, decreased dose of lisinopril 2.5 mg daily Brilinta 90 mg Tablet 90 mg PO BID Qty: 60 2RF sennosides-docusate sodium [Stool Softener-Stimulant Laxat] 8.6-50 mg Tablet 2 tab PO BID PRN (Reason: Constipation) Qty: 0 0RF Rx Instructions: [id number] Continued cholecalciferol (vitamin D3) [Vitamin D3] 1,000 UNIT capsule 1,000 unit PO DAILY Discontinued amlodipine [Norvasc] 10 mg tablet 10 mg PO DAILY Referrals / Follow Up: Adi Young DO [Primary Care Provider] - Within 1 Week Kathryn Fontana MD [Med Staff - Active Staff] - Within 2 Weeks (for STEMI and staged procedure 4 weeks) Disposition Disposition (needs filled in before D/C Order can be placed): Home, Self Care Charges/Coding Visit Charges Inpatient E&M: 62803 Disch Hosp
[2022-04-27 10:00] VITALS: BP 107/75; PULSE 61; RESP 18; TEMP 36.3; O2SAT 97
--- NOTE | 2022-04-27 10:00 | EKG12_ITS ---
Test Reason : AM EKG Blood Pressure : / mmHG Vent. Rate : 056 BPM Atrial Rate : 056 BPM P-R Int : 144 ms QRS Dur : 092 ms QT Int : 488 ms P-R-T Axes : 063 267 099 degrees QTc Int : 470 ms Sinus bradycardia Right superior axis deviation Septal infarct (cited on or before 23-APR-2022) ST & Marked T wave abnormality, consider anterolateral ischemia Abnormal ECG When compared with ECG of 25-APR-2022 05:32, Serial changes of Septal infarct Present Confirmed by TOM RAUSCH, EDUARDO ([id number]), senior editor LUIZ HADDAD ([id number]) on 04/29/2022 9:45:45 AM Referred By: Kathryn Fontana Confirmed By:REYNOLD FONTANA MD
== END 2022-04-27 10:37 | disposition home or self-care (01) | DRG 246 ==
LOC: ED 08:21 → ICU 08:56 → PCU 04-24 17:01
PROVIDERS: Admitting Provider Internal Medicine; Emergency Provider Emergency Medicine; PCP Family Medicine; Referring Provider Specialist; Visit Provider Internal Medicine
DX: I21.09 ST elevation (STEMI) myocardial infarction involving other coronary artery of anterior wall (principal); I50.41 Acute combined systolic (congestive) and diastolic (congestive) heart failure; I11.0 Hypertensive heart disease with heart failure; J44.9 Chronic obstructive pulmonary disease, unspecified; I71.4 Abdominal aortic aneurysm, without rupture; E83.39 Other disorders of phosphorus metabolism; E87.6 Hypokalemia; F17.210 Nicotine dependence, cigarettes, uncomplicated; Z79.899 Other long term (current) drug therapy; I49.3 Ventricular premature depolarization; R73.9 Hyperglycemia, unspecified; Z66 Do not resuscitate
CPT/HCPCS: 36415; 71045; 80048; 80053; 80061; 80076; 83036; 83735; 84100; 84443; 84484; 85025; 85027; 85610; 85730; 92928; 92929; 92941; 93005; 93306; 93458; 99152; 99153; 99251; 99281; 99284; 99406; C1757; C1874; J7030; J7040; Q9957; Q9967; A4216; C1725; C1769; C1887; C1894; C8929; C9600; C9601; C9606; G0463; J1327; J2405

== ENCOUNTER → 2022-05-13 | Outpatient (CLI) | payer MEDICARE, OTHER, SELFPAY ==
--- NOTE | 2022-05-13 07:59 | PCM.CR.HP2 ---
CR - History & Physical - General Arrival date:: 05/13/22 Arrival time:: 07:59 Date of Referral:: 04/26/22 Date of CR Evaluation:: 05/13/22 Referring Physician: Dr. Johnson Fontana Primary Diagnosis: STEMI, PCI w/ coronary stent - History of Present Cardiac Event Onset Date: Enter Onset Date of cardiac illnesses in Comment field below PTCA or coronary stenting:: Yes - 04/29/2022 Vessel: LAD, D1 - Sleep Disorder Evaluation Hx of Sleep Apnea: No Do you snore loudly (louder than talking or can be heard through closed doors)?: No Do you often feel tired/ fatigued/ sleepy during daytime?: No Has anyone observed you stop breathing during sleep?: No History of Hypertension (for STOP score): Yes STOP Results: Negative - Medications Home Medications: Ambulatory Orders Medication Instructions Recorded cholecalciferol (vitamin D3) 25 1,000 unit PO DAILY supplement 07/14/17 mcg (1,000 unit) capsule (Vitamin D3) aspirin 81 mg tablet,delayed 81 mg PO DAILY@0800 #90 tabs 04/27/22 release atorvastatin 40 mg tablet 40 mg PO QHS #30 tabs 04/27/22 carvedilol 6.25 mg tablet 6.25 mg PO BID #60 tabs 04/27/22 lisinopril 5 mg tablet 5 mg PO DAILY #30 tabs 04/27/22 nitroglycerin 0.4 mg sublingual 0.4 mg sublingual Q5M PRN 04/27/22 tablet Cardiac/Chest Pain #30 tabs sennosides 8.6 mg-docusate sodium 2 tab PO BID PRN Constipation #0 04/27/22 50 mg tablet (Stool tabs Softener-Stimulant Laxative) ticagrelor 90 mg tablet (Brilinta) 90 mg PO BID #60 tabs 04/27/22 - Allergies Allergies/Adverse Reactions: Allergies No Known Allergies Allergy (Verified 04/23/22 08:23) Advanced Directives - Advanced Directives Power of Sales Superintendent: Yes Living Will: Yes Advance Directives Information Provided: Yes Advance Directives on File: Yes DNR Order?:: No Past Medical History - Covid-19 Screening Fever: No Unexplained muscle aches: No Current respiratory symptoms: No Upper respiratory infections symptoms: No Gastro-intestinal symptoms: No Muj-Qeaa-Tcrevy symptoms: No Has tested positive for COVID-19 in last 30 days: No Had contact w/person w/symptoms or Covid-19 (+) last 14 days: No Has High Risk Exposures ID'd by Health dept/Inf Control team: No 65 years or older:: Yes Lives in Assisted Living facility:: No Has a chronic lung disease or moderate to severe asthma:: Yes Has a serious heart condition:: Yes Immunocompromised:: No Severely obese (Body Mass Index of 40 or higher):: No Diabetic:: No Has chronic kidney disease undergoing dialysis:: No Has liver disease:: No - Past Medical Illness Medical History: Past Medical History (Last Updated 04/23/22 @ 14:08 by Micki Mendes) Atherosclerosis of coronary artery of [place] heart without angina pectoris I25.10 COPD (chronic obstructive pulmonary disease) J44.9 Hypertension I10 LV dysfunction I51.9 Myocardial infarct I21.9 Sciatica M54.[address] elevation (STEMI) myocardial infarction I21.3 Tobacco abuse Z72.0 - Past Surgical History Surgical History: Past Surgical History (Last Updated 04/23/22 @ 14:08 by Micki Mendes) History of coronary artery stent placement Onset Date: 04/23/22 Z95.5 PCI-CAMDEN to pLAD w/ 3.0 x 26 mm [facility] MR CAMDEN, PCI-CAMDEN to pD1 w[facility] 3.0 [facility] 04/23/22; S/P AAA repair Z98.890, Z86.79 Surgical History: - - Pilonidal cystectomy Social History - Smoking History Smoking Status: Current every day smoker Years Smokin Packs Smoked per Day: 1 Hx Tobacco Use: Yes - Alcohol Use Alcohol Usage: No - Substance Abuse Hx Substance Use: No - Occupation Occupation (List type of work in comments):: Retired - Hobbies, Recreation, Social Activities Hobbies: Other - hunting and cars Recreational Activities: I am able to engage in all my recreational activities Social Environment - Status Marital Status: - Current Living Arrangements Living Environment:: Spouse - Children How many children do you have?: 3 Do any of your children live nearby?: Yes - Safety Do you feel safe in your surroundings?: Yes - Assistance Do you need any assistance at home?: no Review of Systems - Review of Systems Hints: Right click = Denies (Slash). Left click = Reports ([place]) Review of Present Symptoms: Reports: Appetite - Normal. Denies: Shortness of Breath at Rest, Shortness of Breath with Exertion, PVD, Operative Discomfort, Angina, Wound Healing, Dizziness/Lightheadedness, Fatigue, Heart Arrhythmia/Irregularities, Appetite - Special Diet, Sleep - Normal, Sexual Changes - Pain Is Patient Pain Free?: Yes Risk Factor Assessment - Vital Signs Pulse Ox: 98 Blood Pressure: 116/70 - Pulse Pulse Rate: 54 Pulse Rhythm: Regular - Diabetes Nutrition Referral for Diabetes: No - Obesity Height: 5 ft 10 in Weight:: 74.843 kg Weight in Pounds: 165.0 lbs Body Mass Index (BMI): 23.6 Nutritional Referral for Obesity: No - pt declines - Physical Inactivity Physical Inactivity: Recreational activity - Risk Stratification Risk Guidelines: Moderate Risk: Risk Factor for Dyslipidemia, Risk Factor for Diabetes, Risk Factor for Obesity, Risk Factor for Sedentary Lifestyle, Risk Factor for Depression, Highest Risk: Risk Factor for Smoking, Risk Factor for Hypertension Motivation - Motivation to Participate On a scale of 1 to 10, how prepared are you to commit to attending program?: 7 What do you see as barriers to successfully being able to complete the program?: nothing What do you see as the benefits of succesfully completing the program? In other words, what do you hope to get out of participating in the program?: improved health Are there issues you are dealing with that will interfere with completing the program?: no Do you have a spouse or signficant other, family or friends who will help support you to complete the program?: yes
[2022-05-13 08:54] VITALS: BP 116/70; PULSE 54; O2SAT 98; BMI 23.6
--- NOTE | 2022-05-13 08:54 | PCM.CR.ITP ---
Diagnosis - General Information Admitting Diagnosis: PCI w/coronary stent Personal Learning Style:: Audio/Visual Barriers to Learning: Vision Impairment Stage of change r/t lifestyle modifications:: Contemplation Gave educational material for:: Treating Heart Disease, Emotions & Heart Disease, Stress Management & Relaxation, Sleep Disorders & Heart Disease, How The Heart Works, What it means to have Heart Disease, How Coronary Artery Disease is Diagnosed, Heart Procedures, What Heart Medications Do, Risk Factors & Modifications, Living an Active Life, Nutrition - Education/Goals Cardiac Rehabilitation Goals: 1. Maintain the individual as the primary focus of care. 2. To improve the patient's quality of life. 3. Identification of cardiac risk factors and provide cardiac risk factor management. 4. Enhance the psychosocial status of the patient. 5. Reconditioning enough to allow the patient to resume customary activities. 6. Control symptoms of cardiac disease Personal Goals: Initial Assessment: Quit smoking (participate in smoking cessation, Participate in home exercise program, Improve muscle strength and endurance Scale for measuring improvement of personal goals: Enter appropriate number in Comments. 2 = Unchanged. 3 = Slightly Better. 4 = Moderate Improvement. 5 = Met my Goal - Diagnosis & Disease Process Outcomes/Goals: Pt IDs own risk factors & lifestyle modifications by Session 10, Verbalizes symptoms of angina & response by session 3., Pt independently manages, Other Additional Outcomes/Goals: Plan/Interventions: Assist Pt to ID & engage in lifestyle modification to reduce CVD risk, Instruct on individual risk factors, Review symptoms of angina & emergency actions, Review secondary diagnosis & identify educational needs., Other see comment 30 day Reassessments:: Not Met 30 day Reassessments:: Not Met 30 day Reassessments:: Not Met 30 day Reassessments:: Not Met Final Reassessments:: Not Met - Safety Referral to Physical Therapy: No Referral to [facility] Case Management: No Fall Risk Assessed:: Yes Assistive Devices:: None Exercise - Initial Assessment - Visit Date of Eval: 05/13/22 - initial eval Mets: Pre-: >3 METS for 30 minutes by discharge, >5 METS for 30 minutes by discharge, >7 METS for 30 minutes by discharge, Unable to meet goal due to: (see comment below) - Physician Prescribed Exercise Modalities: Treadmill, Rower, Airdyne, NuStep, SciFit, Lateral Tie Up Worker Frequency: 3x/week for 12 weeks [36 sessions] Intensity: 60-80% of age predicted maximum heart rate reserve Current METSs:: 3 Target Heart Rate:: 98-129 Resting Blood Pressure: 116/70 EKG Type: SB with T wave abnormality - Outcomes & Goals Goals:: Verbalizes understanding of THR, RPE & goal METS by session 6, Documents in home exercise log/reports 30 min aerobic 5 day/wk by DC, Demonstrates accurate pulse taking by DC, Other additional outcome/goals: see below - Intervention & Plan Exercise Program Goals: Instruct on personal THR & RPE, Instruct on MET level & personal MET goal, Show patient to take own pulse /validate performance until accurate, Instruct on home exercise, Other additional plan/int - Physical Activity Home Exercise Physical Activity - Home Exercise: Safe Exercise, Warm-up, Self-monitoring, Cool-Down, Home Exercise > 30 min Daily, Sitting Time <3 hours/daily - Outcomes & Goals Outcomes/Goals: Demonstrates correct Warm-up/exercise Cool-Down (S3) if = 2.5 METs, Verbalizes symptoms of exercise intolerance by Session 3 (S3), Demonstrate safe equipment use (S3) & follows exercise prescrition (6), Other: See below - Intervention & Plan Plan/Intervention: Instruct warm-up & cool-down if exercising at > 2 METs, Instruct on symptoms of exercise intolerance & actions to take, Instruct & monitor on saf, Assess intial functional capacity & safety risk, Other See below Nutrition - Initial Assessment - Program Goals Nutrition Program Goals: LDL <100 optimal. 100 - 129 Near optimal. 130 - 159 Borderline High. 160 - 189 High. Total Cholesterol <200 desirable. 200 - 239 Borderline High. >/= 240 High. HDL < 40 Low >/=60 High. Triglycerides <150 desirable. <199 optimal. VlDL 5 - 40. HgbA1C <7%. BMI <25 Patient has diagnosis of Hyperlipidemia (ICD E78)?: No - Visit Date of Assessment:: 05/13/22 - initial eval - Cholesterol/Lipids (Other Core Measures) Determine presence & major risk factors that modify LDL goal: Cigarette smoking, Hypertension or hypertensive medication, Low HDL cholesterol <40 mg/dL*, Family history of premature CHD in Male < 55 years: female <65 yearsFa, Age men > 45 years; women >/= 55 years Outcomes/Goals: Pt IDs own risk factors & lifestyle modifications by Session 10, Verbalizes symptoms of angina & response by session 3., Pt independently manages, Other Additional Outcomes/Goals: Intervention/Plan: Advocate for lipid panel cholesterol medication if applicable, Instruct on personal lipid levels & lipid goals/NCEP guidelines, Instruct on cholesterol, Other additional plan/int Referral to dietitian:: No - declines - Diabetes (Other Core Measures) Diabetes Type: Not Applicable - Weight Mgt (Other Care) Height: 5 ft 10 in Weight:: 74.843 kg BMI: 23.6 Diagnosis Overweight/Obesity BMI> 30% ICD-10 E66: No Diagnosis High BMI/Morbid Obesity BMI> 35% ICD-10 Z68: No Outcomes/Goals: Pt sets, maintains & shows weight loss goal & trend during rehab, Other additional outcomes/goals Intervention/Plan: Instruct on ideal BMI & set weight loss goal w/patient, Assist pt to ID & incorporate diet changes for weight loss by S9, Refer to Structured Weight Loss program as appropriate, Encourage goal of using 250-300dcal per session for weight loss, Other additional plan/interventions - Healthy Eating Habits Will attend diet classes:: Yes Outcomes/Goals:: Consume diet rich in vegs,fruits,whole grain/high fiber,fish,lean meat, Limit sat/trans fats,cholesterol & added salts & sugars, Other additional outcome/goals: Intervention/Plan:: Assess current eating habits, Other Additional plan/interventions - Education Gave educational materials for:: Signs & symptoms of hypoglycemia, Signs & symptoms of hyperglycemia, Relate diabetes to coronary artery disease, Healthy eating Nutrition - 30-Day Assessment Nutrition - 60-Day Assessment Nutrition - 90-Day Assessment Nutrition - Final Assessment Core - Initial Assessment - Visit Date of Eval: 05/13/22 - initial eval - Medication Compliance Preventative Medication(s):: Aspirin, MICAH inhibitor, Ticagrelor/P2Y12 inhibitor, Statin/lipid, Beta gricel H/O mental health issues: depression, anxiety, or addiction?: No Doesn?t believe in the benefits of treatment?: No Believes medications are unnecessary or harmful?: No Has a concern about medication side effects?: No Expresses concern over the cost of medications?: No Outcomes/Goals: Verbalizes medications,desired effect & common side effects @ DC, Pt self-reports following medication regimen, Keeps card in wallet w/medications listed by DC, Other additional outcome/goals: Interventions/plans: Instruct on medication effects & side effects, Review medication list w/patient every two weeks, Instruct importance of taking meds as ordered & assist problem solving, Other additional - Tobacco Use Tobacco Use: Cigarettes How many cigarettes do you smoke per day?: 10 Outcomes/Goals: Smoking cessation achieved or maintained by discharge, Identify aids/strategies for achieving smoking cessation by session 6, Other additional outcome/goals Interventions/plan: Instruct on effects of smoking & provide smoking cessation resource, Assist pt to set quit date & provide encouragement, Assist pt to develop strategies to achieve/maintain quit date, Assist pt w/nicotine replacement & medication for cessation success, Other additional plan/interventions - Hypertension Hypertension Diagnosis:: Hypertension ICD-10 I10 Resting Blood Pressure:: 116/70 [place] [employer] Hypertension Guidelines: [place] [employer] Hypertension Guidelines. Normal BP Less than 120/80. Elevated BP 120/80. Hypertension Stage 1: BP 130-139/80-89. Hypertesnion Stage 2: BP 140 or higher/90 or higher. Hypertension Crisis: BP higher than 180/120 Outcomes/Goals: Able to verbalize/achieve optimal blood pressure <130/80, Incorporates diet changes & exercise for blood pressure control by DC, Other additional outcomes/goals Interventions/plan: Instruct on optimal blood pressure, hypertension & medications, Instruct on effects of sodium, alcohol, stress, exercise &hypertension, Other additional plan/interventions - Tobacco Cessation Referral Smoking Cessation Referral:: No - pt declines Individual Education/Counseling:: No Education Schedule Given:: Yes Core - 30-Day Assessment Core - 60-Day Assessment Core - 90 Day Assessment Core - Final Assessment Psychosocial - Initial Assess - VIsit Date of Eval: 05/13/22 - initial eval History of previous Mental disease:: No - Outcomes/Goals: See list Psychosocial Outcomes/Goals:: ID's personal stressors & 2 strategies to manage stress by discharge, Other Additional outcome/goals: - Intervention/Plan: See List Interventions/Plan:: Assess stressors,coping strategies & signs of derpression on admission, Instruct/assist pt to develop coping & personal stress Mgt strategies, Refer to Behavioral Health if appropriate, Refer to Physician if appropriate, Instruct patient to recognize signs & symptoms of depression, Instruct patient to recog, Other additional plan/intervention Psychosocial - 30-Day Assess Psychosocial - 60-Day Assess Psychosocial - 90-Day Assess Psychosocial - Final Assessmen Patient Health Questionnaire Initial Assessment 1. Little interest or pleasure in doing things: Several days 2. Feeling down, depressed, or hopeless: Not at all 3. Trouble falling or staying asleep, or sleeping too much: Several days 4. Feeling tired or having little energy: Several days 5. Poor appetite or overeating: Not at all 6. Feeling bad about yourself -- or that you are a failure or have let yourself or your family down: Not at all 7. Trouble concentrating on things, such as reading the newspaper or watching television: Not at all 8. Moving or speaking so slowly that other people could have noticed. Or the opposite - being so fidgety or restless that you have been moving around a lot more than usual: Not at all 9. Thoughts that you would be better off , or of hurting yourself in some way: Not at all How difficult have these problems made it for you to do your work, take care of things at home, or get along with other people?: Not difficult at all Total Score: 3 DESTINEE-Q SV Test - Statements CAD is a disease of the arteries in the heart: False Examples of risk factors for heart disease: True Angina is chest pain or discomfort: True The benefits of resistance training include: True Eating more meat and dairy products: I Don't Know Anti-platelet medications such as aspirin are important: True The only effective way to manage stress: False An exercise warm-up slowly increases heart rate: I Don't Know Prepared, processed foods usually have high sodium: True Depression is common after a heart attack: True The statin medications lower cholesterol: True To control blood pressure, lower the amount of sodium: True If someone gets chest discomfort during walking: False Transfats are partially hydrogenated vegetable oils: True Sleep apnea that is not treated increases the risk: True To control cholesterol, one should become a vegetarian: False Someone knows if he/she is exercising at the right level: I Don't Know Diabetes cannot be prevented with exercise & health eating: I Don't Know Stress is a large risk for heart attack: True A diet that can help lower blood pressure is rich in: I Don't Know - Total Score Total Correct Responses: 14 Self-Efficacy Initial Assessment We would like to know how confident you are in doing certain activities. Please select your confidence level for:: Select your confidence level for the following using the scale 1-10 where 1 is not at all confident and 10 is totally confident. Your score is the average of all 6 responses. Fatigue: How confident are you that you can keep the fatigue caused by your disease from interfering with the things you want to do? Select Number: 8 Physical Discomfort or Pain: How confident are you that you can keep the physical discomfort or pain of your disease from interfering with the things you want to do? Select Number: 8 Emotional Distress: How confident are you that you can keep the emotional distress caused by your disease from interfering with the things you want to do? Select Number: 7 Other Symptoms or Health Problems: How confident are you that you can keep other symptoms or health problems from interfering with the things you want to do? Select Number: 8 Different Tasks and Activities: How confident are you that you can do the different tasks and activities needed to manage your health condition so as to reduce your need to see a doctor? Select Number: 6 Medication: How confident are you that you can do things other than just taking medication to reduce how much your illness affects your everyday life? Select Number: 8 Total Score:: 7 Nutrition Survey - Nutrition Survey Initial Have you lost >10 lbs over the past 2 months without trying?: No Are you following a special diet at home for diabetes, low fat, or low salt?: No Are you interested in meeting with a dietitian for help understanding your diet?: No Do you eat less than 3 meals a day?: No Do you eat fatty meats (barraza, sausage, ribs, etc), fried foods, desserts, large amounts of salad dressings, margarine, butter, or cheese most days?: Yes Do you have food allergies? [Enter types in comment field]: No Do you eat in restaurants more than 3 times a week?: Yes Do you season food with salt, seasoning salt, or garlic salt?: No Do you used canned, boxed, frozen meals, or soups, seasoning packets?: No Total Score:: 2
[2022-05-13 09:07] VITALS: BP 116/70; BMI 23.6
== END | disposition home or self-care (01) ==
LOC: CR 07:52
PROVIDERS: PCP Family Medicine; Referring Provider Specialist; Visit Provider Specialist
DX: Z95.5 Presence of coronary angioplasty implant and graft (principal)

== ENCOUNTER → 2022-05-28 | Outpatient (CLI) | payer MEDICARE, OTHER, SELFPAY ==
[2022-05-13 09:07] VITALS: BMI 23.6
[2022-05-28 13:32] LABS: Absolute Lymphocyte Count 2.05 X10^3/uL (0.83-4.51); Absolute Neutrophil Count 6.5 X10^3/uL (2.0-7.7); Basophil# 0.06 X10^3/uL; Basophil% 0.6 % (0-1); Eosinophil# 0.26 X10^3/uL; Eosinophils% 2.6 % (0-5); Hemoglobin 14.9 g/dL (13.0-16.5); Lymphocyte # 2.05 X10^3/ul (0.83-4.51); Lymphocyte % 20.4 % (19-41); Mean Corp Hgb Conc 33.9 g/dL (32-36); Mean Corpuscular Volume 88.5 fL (80-94); Mean Platelet Vol. 9.4 fl (6.2-12.0); Monocyte# 1.16 X10^3/uL; Monocyte% 11.6 % (0-10); NRBC Flagged by Analyzer 0 % (0-5); Neutrophil # 6.49 X10^3/uL (2.7-7.7); Neutrophil % 64.6 % (47-70); Platelet Count 235 K/mm3 (150-450); RBC Distribution Width CV 14.8 % (11.6-14.6); Red Blood Count 4.97 M/mm3 (4.6-6.2)
[2022-05-28 13:46] LABS: Anion Gap 6 (5-15); BUN 14 mg/dL (7-18); BUN/Creat Ratio 17.3 RATIO (10-20); Calcium,Total 9.6 mg/dL (8.5-10.1); Chloride 109 mmol/L (98-107); Creatinine, Serum 0.81 mg/dL (0.70-1.30); EST Glomerular Filtration Rate 101 mL/min (>60); Est Glom Filt Rate - Afr Amer 122 mL/min (>60); Glucose 92 mg/dL (74-106); Potassium 3.8 mmol/L (3.5-5.1); Sodium Level 142 mmol/L (136-145)
[2022-05-28 14:07] LABS: International Normalized Ratio 1.1; Prothrombin Time (Protime)PT. 13.4 SECONDS (11.7-14.9)
== END | disposition home or self-care (01) ==
PROVIDERS: PCP Family Medicine; Referring Provider Specialist; Visit Provider Specialist
DX: I10 Essential (primary) hypertension (principal); I25.10 Atherosclerotic heart disease of native coronary artery without angina pectoris; Z95.5 Presence of coronary angioplasty implant and graft
CPT/HCPCS: 36415; 80048; 85025; 85610

== ENCOUNTER 2022-06-13 11:51 | Observation (INO) | payer MEDICARE, OTHER, SELFPAY ==
[2022-05-13 09:07] VITALS: BMI 23.6
[2022-06-12 07:25] VITALS: BMI 24.7
[2022-06-13] VITALS (15 sets, daily range): BP systolic 133–163; BP diastolic 74–96; PULSE 49–59; RESP 16–20; TEMP 36.6–36.9; O2SAT 95–99; BMI 24.5
--- NOTE | 2022-06-13 12:00 | EKG12_ITS ---
Test Reason : PCI Blood Pressure : / mmHG Vent. Rate : 051 BPM Atrial Rate : 051 BPM P-R Int : 156 ms QRS Dur : 104 ms QT Int : 502 ms P-R-T Axes : 057 -52 089 degrees QTc Int : 462 ms Sinus bradycardia Left axis deviation Septal infarct (cited on or before 23-APR-2022) T wave abnormality, consider anterolateral ischemia Abnormal ECG When compared with ECG of 27-APR-2022 05:05, Questionable change in initial forces of Anterior leads ST no longer elevated in Anterior leads T wave inversion more evident in Anterior leads Confirmed by TOM RAUSCH, EDUARDO ([id number]), society editor ZAYDA TAPIA ([id number]) on 06/14/2022 8:15:28 AM Referred By: Kathryn Fontana Confirmed By:REYNOLD FONTANA MD
[2022-06-13] MEDS: 0.9% Normal Saline 1,000 ML 70 ML IV (12:13)
--- NOTE | 2022-06-13 12:15 | CL.I_ITS ---
Patient Name: HUSSEIN ATKINS Study Date: 06/13/2022 Performing: Johnson Fontana MD Ht: 70 inches 177.8 cm : 1955 Wt: 172.2 lbs 78.02 kg Age: 67 Gender: male BSA: 1.96 PROCEDURE(S) PERFORMED IC12-(10837/C9600)CAMDEN W/WO PTCA, SINGLE CORONARY ARTERY CLINICAL PROFILE AND CO-MORBIDITIES Indications: Staged PCI of RCA Heart Failure: None CONCLUSIONS Successful PCI of dRCA with CAMDEN RECOMMENDATIONS DESCRIPTION OF PROCEDURE The patient arrived to the procedure lab. The risks and benefits of the procedure as well as a full description of our services here and current unavailability of surgical backup were fully explained to the patient and/or their significant other prior to the catheterization. The Timeout was completed, verifying the correct patient and procedure. The patient's procedural site was prepped and draped in the usual fashion. Local anesthetic was given subcutaneously to right radial region with Lidocaine 2%. Using a modified Seldinger technique, arterial access was obtained via the right radial artery, a 6Fr sheath was inserted.. AR 2.0 Guide catheter was inserted and engaged into the RCA. BMW Guide wire was advanced to the RPL. 3.0 x 13 Orsiro Drug Eluting stent was inserted. Drug Eluting stent was advanced across the lesion in the right coronary, distal. Angiogram performed post stent deployment. The arterial sheath was pulled and a TR Band was applied for hemostasis. 19cc air inserted. INTERVENTION INFORMATION LESION SITE: RCA (Distal) Lesion Complexity: High/C, chronic total occlusion: No, lesion at bifurcation: No, thrombus present: No, lesion length: 9 mm, culprit lesion: Yes, Previously treated lesion: No Pre Stenosis: 80 % Pre intervention DHAVAL flow: 3 PROCEDURE: Drug Eluting Stent Post Stenosis: 0 % Post intervention DHAVAL flow: 3 Lesion Devices: Santos .014 BMW [place] Straight 190cm Cardinal 6 Fr AR2 100cm Guide Catheter Biotronik Orsiro Capitan MR CAMDEN 3.0x13 COMPLICATIONS No Complications PROCEDURE MEDICATIONS Fentanyl 50 mcg IV Versed 1 mg IV Oxygen: 2 L/min via nasal cannula Heparin 3000 unit(s) IV 06/13/2022 10:54:42 Heparin given IA 06/13/2022 10:54:49 Verapamil 2.5mg, Ntg 100mcgs, 3000 units of Heparin given IA 06/13/2022 10:54:49 SUMMARY OF HEMODYNAMIC DATA Time AIR REST ECG 09:11:21 AO 117/61 (82) SA 11:01:32 Signed By Johnson Fontana MD On 06/13/2022 12:14:54 Johnson Fontana MD
[2022-06-13] MEDS: TICAGRELOR 90 MG TABLET PO (21:23)
[2022-06-13] MEDS: Atorvastatin Calcium 40 MG Tablet PO (21:23)
[2022-06-14 03:00] VITALS: BP 160/83; PULSE 55; PULSE 57; RESP 20; TEMP 36.7; O2SAT 95
[2022-06-14 06:48] LABS: Hematocrit 46.3 % (40-54); Hemoglobin 15.4 g/dL (13.0-16.5); Mean Corp Hgb Conc 33.3 g/dL (32-36); Mean Corpuscular Hgb 29.3 pg (27.0-32.0); Mean Corpuscular Volume 88.2 fL (80-94); Mean Platelet Vol. 9.3 fl (6.2-12.0); Platelet Count 256 K/mm3 (150-450); RBC Distribution Width CV 14.2 % (11.6-14.6); RBC Distribution Width SD 45.7 fl (35.1-43.9); Red Blood Count 5.25 M/mm3 (4.6-6.2); White Blood Count 10.1 K/mm3 (4.4-11.0)
[2022-06-14 07:00] VITALS: PULSE 56
[2022-06-14 07:26] LABS: AST(SGOT) 17 U/L (15-37); Alanine Aminotransfer ALT/SGPT 24 U/L (16-61); Albumin, Serum 3.8 g/dL (3.2-5.0); Alkaline Phosphatase 39 U/L (45-117); Anion Gap 8 (5-15); BUN 16 mg/dL (7-18); BUN/Creat Ratio 21.4 RATIO (10-20); Calcium,Total 9.3 mg/dL (8.5-10.1); Chloride 107 mmol/L (98-107); Creatinine, Serum 0.75 mg/dL (0.70-1.30); EST Glomerular Filtration Rate 111 mL/min (>60); Est Glom Filt Rate - Afr Amer 134 mL/min (>60); Globulin 3.7 g/dL (2.2-4.2); Glucose 101 mg/dL (74-106); Potassium 3.7 mmol/L (3.5-5.1); Protein, Total 7.5 g/dL (6.4-8.2); Sodium Level 138 mmol/L (136-145)
[2022-06-14] MEDS: Aspirin E.C. 81 MG Tablet PO (07:42)
[2022-06-14 07:49] VITALS: BP 145/82; PULSE 54; RESP 14; TEMP 36.5; O2SAT 97
[2022-06-14 08:25] VITALS: O2SAT 95
--- NOTE | 2022-06-14 08:59 | CRPHASE1_ITS ---
Patient Communication PHII Cardiac Rehab Discussed with Patient:: Yes - pt is signed up for PHII rehab at [facility] Guide to Cardiac Rehab Given to Patient:: Yes Cardiac Rehab Facility Choice List Given to Patient:: Yes Choice Program [facility] CR PHII:: Communication Given to CR, Refer to [facility] Refer Phase II Cardiac Rehab:: Yes Sessions:: 36 sessions - 3 days/wk, 12 weeks Cardiac Rehabilitation Info Cardiac Rehabilitation Program Information: Cardiac Rehabilitation is important for patients like you who are recovering from a heart problem. Cardiac rehabilitation programs are recognized as integral to the continued care of the patient with coronary heart disease. The cardiac rehabilitation program is designed to optimize a patient's physical, psychological, and social functioning. Health child care coordinator work in cardiac rehabilitation programs and assist you with getting the treatments you need to get stronger and healthier - like exercise, healthy eating habits, and medic ations. Cardiac rehabilitation has been show to help people with heart problems live longer and have better life enjoyment than people who do not go to cardiac rehabilitation. Please contact the Cardiac Rehabilitation Program at [facility] at in two weeks if you have not heard from them.
[2022-06-14] MEDS: TICAGRELOR 90 MG TABLET PO (09:26)
[2022-06-14] MEDS: amLODIPine 10 MG Tablet PO (09:26)
[2022-06-14] MEDS: Carvedilol 6.25 MG Tablet PO (09:26)
[2022-06-14] MEDS: FLU VACC QS2022-23(6MOS UP)/PF 60 MCG/0.5 ML SYRINGE IM (09:30)
--- NOTE | 2022-06-14 10:00 | EKG12_ITS ---
Test Reason : AM EKG Blood Pressure : / mmHG Vent. Rate : 049 BPM Atrial Rate : 049 BPM P-R Int : 154 ms QRS Dur : 102 ms QT Int : 496 ms P-R-T Axes : 063 -65 089 degrees QTc Int : 448 ms Sinus bradycardia Left axis deviation Anteroseptal infarct , age undetermined T wave abnormality, consider lateral ischemia Abnormal ECG Confirmed by YULIANA RAUSCH, ROBSON ([id number]), medical editor LUIZ HADDAD ([id number]) on 06/18/2022 11:04:44 AM Referred By: Kathryn Fontana Confirmed By:ROBSON BRIDGES MD
--- NOTE | 2022-06-14 12:25 | DCINST_ITS ---
Discharge Instructions Diet Discharge Diet: Low fat / Low cholesterol Activity Discharge Activity: Return to Normal Activity Lifting Restrictions: Do not lift anything greater than 10 lbs for 3 days Dressing / Incision Call your doctor if your incision/area has: Continuous Slow Oozing, Sudden Increased Bleeding, Increased Pain/ Swelling, Increased Redness and Foul Smelling Discharge Follow Up Care Test Results: Test results from this visit will be discussed in further detail at your follow- up appointment, if applicable. Discharge Plan Admission Admit Date/Time: 06/13/22 11:51 Primary Reason for Your Visit: Stagged PCI Attending Provider: Kathryn Fontana Primary Care Provider: Adi Young Instructions Additional Instructions / Restrictions: Do not lift anything greater than 10 lbs for 3 days You need to stay on your Brilinta for at lease one year prior to stopping for any reason You may start cardiac rehab Discharge Orders/Prescriptions Prescriptions: Continued amlodipine 10 mg tablet 10 mg PO DAILY cholecalciferol (vitamin D3) [Vitamin D3] 1,000 UNIT capsule 1,000 unit PO DAILY atorvastatin 40 mg Tablet 40 mg PO QHS Qty: 30 2RF carvedilol 6.25 mg Tablet 6.25 mg PO BID Qty: 60 2RF Rx Instructions: Hold for heart less than 60 or systolic blood pressure less than 100 mmHg. aspirin 81 mg Tablet,Delayed Release (Dr/Ec) 81 mg PO DAILY@0800 Qty: 90 1RF nitroglycerin 0.4 mg Tablet, Sublingual 0.4 mg sublingual Q5M PRN (Reason: Cardiac/Chest Pain) Qty: 30 0RF Brilinta 90 mg Tablet 90 mg PO BID Qty: 60 2RF Referrals / Follow Up: Adi Young DO [Primary Care Provider] - Sylvia Lerma PA [Med Staff - Adv Practice Prof] - (your f/u with Dr. Fontana will be scheduled for 3 months) Disposition Disposition (needs filled in before D/C Order can be placed): Home, Self Care
--- NOTE | 2022-06-14 13:10 | CASEMGMT ---
This RN GOMEZ to room with MENDOZA form, explanation done-pt voices understanding, and signs MENDOZA form. Original to chart and copy to pt. Pt voices no further questions/concerns/needs. S[employer]en [employer] CM
[2022-06-14 13:26] VITALS: BP 145/82; PULSE 54; RESP 16; TEMP 37.1; O2SAT 95
== END 2022-06-14 12:30 | disposition home or self-care (01) ==
LOC: CLSP 12:04 → PCU 12:04
PROVIDERS: Admitting Provider Specialist; PCP Family Medicine; Referring Provider Specialist; Visit Provider Specialist
DX: I25.10 Atherosclerotic heart disease of native coronary artery without angina pectoris (principal); J44.9 Chronic obstructive pulmonary disease, unspecified; I25.2 Old myocardial infarction; Z95.5 Presence of coronary angioplasty implant and graft; Z79.899 Other long term (current) drug therapy; I10 Essential (primary) hypertension; F17.200 Nicotine dependence, unspecified, uncomplicated; I51.9 Heart disease, unspecified; Z23 Encounter for immunization
CPT/HCPCS: 36415; 80053; 85027; 92928; 93005; 99152; 99153; 99218; C1874; C1887; G0008; J7030; 90686; C1769; C1894; C9600; G0378; Q9967

== ENCOUNTER 2022-07-01 11:02 | Outpatient (RCR) | payer MEDICARE, OTHER, SELFPAY ==
[2022-05-13 09:07] VITALS: BMI 23.6
== END 2022-07-01 23:59 ==
LOC: CR 11:02
PROVIDERS: PCP Family Medicine; Referring Provider Specialist; Visit Provider Specialist
DX: I25.10 Atherosclerotic heart disease of native coronary artery without angina pectoris (principal); Z95.5 Presence of coronary angioplasty implant and graft
CPT/HCPCS: 93798

== ENCOUNTER → 2022-07-15 | Outpatient (CLI) | payer MEDICARE, OTHER, SELFPAY ==
[2022-05-13 09:07] VITALS: BMI 23.6
[2022-07-15 12:18] LABS: Cholesterol 129 mg/dL (200); High Density Lipoprotein 44 mg/dL; PSA,Total - Annual Screen 1.72 ng/mL (0.00-4.00); Triglycerides 79 mg/dL; Very Low Density Lipoprotein 16 mg/dL (5-40)
== END | disposition home or self-care (01) ==
LOC: BFHLAB 09:30
PROVIDERS: PCP Family Medicine; Visit Provider Family Medicine
DX: I25.10 Atherosclerotic heart disease of native coronary artery without angina pectoris (principal); Z12.5 Encounter for screening for malignant neoplasm of prostate
CPT/HCPCS: 36415; 80061; 84153; G0103

== ENCOUNTER → 2022-07-23 | Outpatient (CLI) | payer MEDICARE, OTHER, SELFPAY ==
[2022-05-13 09:07] VITALS: BMI 23.6
--- NOTE | 2022-07-23 15:50 | CT_ITS ---
EXAM: CT CHEST, LUNG CANCER SCREENING WITHOUT INTRAVENOUS CONTRAST CLINICAL INDICATION: SCREENING TECHNIQUE: Helically acquired images were obtained of the chest without intravenous contrast using low dose (LDCT) lung cancer screening protocol. This CT exam was performed using one or more of the following dose reduction techniques: automated exposure control, adjustment of the mA and/or kV according to patient size, and/or use of iterative reconstruction technique. This report was created using [employer] report generation technology. COMPARISON: CT Lung Cancer Screening dated 05/09/2020 FINDINGS: LUNGS AND PLEURAL SPACES: Calcified granuloma within the right middle lobe again noted. Lungs are otherwise clear. No mass. No pleural effusion or thickening. No pneumothorax. HEART: Coronary artery stents are in place. Heart size is normal. No pericardial effusion. MEDIASTINUM: Normal. No mediastinal or hilar adenopathy. Esophagus is unremarkable. No hiatal hernia. THYROID: Normal. No thyroid lesions. BONES/JOINTS: Normal. No suspicious lytic or blastic abnormality. VASCULATURE: Normal. Thoracic aorta is non-dilated. LYMPH NODES: Normal. No enlarged lymph nodes. CT/Low Dose CT Lung Screening IMPRESSION: 1. No evidence of a lung mass or suspicious pulmonary nodule. 2. ACR Lung CT Screening Reporting T Data System (Lung-RADS) score: 1 - Recommend continued annual screening with low-dose CT (LDCT) in 12 months. } Electronically Signed: Gerson Grove MD at 16:38 EST Reading Location ID and State: [address] [place] [address] Tel , Service support ,
== END | disposition home or self-care (01) ==
LOC: CT 15:48
PROVIDERS: PCP Family Medicine; Referring Provider Family Medicine; Visit Provider Family Medicine
DX: Z12.2 Encounter for screening for malignant neoplasm of respiratory organs (principal); Z87.891 Personal history of nicotine dependence
CPT/HCPCS: 71271

== ENCOUNTER 2022-07-24 09:30 | Outpatient (RCR) | payer MEDICARE, OTHER, SELFPAY ==
[2022-05-13 09:07] VITALS: BMI 23.6
== END 2022-07-31 23:59 ==
LOC: CR 09:30
PROVIDERS: PCP Family Medicine; Referring Provider Specialist; Visit Provider Specialist
DX: I25.2 Old myocardial infarction (principal); Z95.5 Presence of coronary angioplasty implant and graft
CPT/HCPCS: 93798

== ENCOUNTER → 2022-08-06 | Outpatient (CLI) | payer MEDICARE, OTHER, SELFPAY ==
[2022-05-13 09:07] VITALS: BMI 23.6
--- NOTE | 2022-08-06 08:53 | AAVD_ITS ---
Reason For Study: AAA S/P EVAR Aorta Measurements Aorta Doppler Measurements Proximal aorta measures2.36 x 2.23cm. in cross- Peak systolic flow velocities within the proximal sectional axis. aorta measure 70.3 cm/sec. Proximal aorta measures2.31cm. in longitudinal Peak systolic flow velocities within the mid aorta axis. measure 40.8 cm/sec. Mid aorta measures3.01 x 3.03cm. in cross- Peak systolic flow velocities within the distal sectional axis. aorta measure 47.4 cm/sec. Mid aorta measures2.76cm. in longitudinal axis. Distal aorta measures2.83 x 2.71cm. in cross- sectional axis. Distal aorta measures2.75cm. in longitudinal axis. Left Iliac Artery Left iliac artery measures .98 x 1.08 cm. in the cross-sectional axis. Left iliac artery measures 1.04 cm. in the longitudinal axis. Peak systolic velocity in the left iliac artery measures 56.1 cm/sec. Sac measures 5.27 x 5.85 cm in short. Sac measures 4.94 cm in long. Right Iliac Artery Right iliac artery measures 1.04 x 1.1 cm. in the cross-sectional axis. Right iliac artery measures 1.08 cm. in the longitudinal axis. Peak systolic velocity in the right iliac artery measures 49.6 cm/sec. 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 Residual aneurysm sac 5.85 cm Right iliac limb velocities normal Left iliac limb velocities normal Ordering Physician: Annie Garcias Performed By: Lalo Muir RVT
== END | disposition home or self-care (01) ==
LOC: CVS 08:50
PROVIDERS: PCP Family Medicine; Referring Provider Physician Assistant; Visit Provider Physician Assistant
DX: Z48.812 Encounter for surgical aftercare following surgery on the circulatory system (principal); Z98.890 Other specified postprocedural states; Z86.79 Personal history of other diseases of the circulatory system
CPT/HCPCS: 93978

== ENCOUNTER 2022-08-30 09:30 | Outpatient (RCR) | payer MEDICARE, OTHER, SELFPAY ==
[2022-05-13 09:07] VITALS: BMI 23.6
== END 2022-08-31 23:59 ==
LOC: CR 09:30
PROVIDERS: PCP Family Medicine; Referring Provider Specialist; Visit Provider Specialist
DX: Z95.5 Presence of coronary angioplasty implant and graft (principal); I25.2 Old myocardial infarction
CPT/HCPCS: 93798

== ENCOUNTER 2022-09-30 09:30 | Outpatient (RCR) | payer MEDICARE, OTHER, SELFPAY ==
[2022-05-13 09:07] VITALS: BMI 23.6
--- NOTE | 2022-09-11 08:19 | CR.ITP_ITS ---
Diagnosis Exercise - 90-day Assessment - Visit Date of Eval: 09/11/22 Session #:: 23 - Physician Prescribed Exercise Modalities: Treadmill, Airdyne, NuStep Current METSs:: 4.5 Target Heart Rate:: 98-129 Current RPE:: 11-13 Maximum Excercise HR:: 95 Resting Blood Pressure: 130/80 Maximum Exercise Blood Pressure: 190/82 EKG Type: SB to SR with rare PAC, PVC - Outcomes & Goals Goals:: Verbalizes understanding of THR, RPE & goal METS by session 6, Documents in home exercise log/reports 30 min aerobic 5 day/wk by DC, Demonstrates accurate pulse taking by DC, Other additional outcome/goals: see below - Intervention & Plan Exercise Program Goals: Instruct on personal THR & RPE, Instruct on MET level & personal MET goal, Show patient to take own pulse /validate performance until accurate, Instruct on home exercise, Other additional plan/int - 30-day Reassessments 30 day Reassessments:: Progressing - THR explained - Physical Activity Home Exercise Physical Activity - Home Exercise: Safe Exercise, Warm-up, Self-monitoring, Cool-Down, Home Exercise > 30 min Daily, Sitting Time <3 hours/daily - Outcomes & Goals Outcomes/Goals: Demonstrates correct Warm-up/exercise Cool-Down (S3) if = 2.5 METs, Verbalizes symptoms of exercise intolerance by Session 3 (S3), Demonstrate safe equipment use (S3) & follows exercise prescrition (6), Other: See below - Intervention & Plan Plan/Intervention: Instruct warm-up & cool-down if exercising at > 2 METs, Instruct on symptoms of exercise intolerance & actions to take, Instruct & monitor on saf, Assess intial functional capacity & safety risk, Other See below - 30-day Reassessments 30 day Reassessments:: Progressing - cool down explained Nutrition - Initial Assessment Nutrition - 30-Day Assessment Nutrition - 60-Day Assessment Nutrition - 90-Day Assessment - Program Goals Nutrition Program Goals: LDL <100 optimal. 100 - 129 Near optimal. 130 - 159 Borderline High. 160 - 189 High. Total Cholesterol <200 desirable. 200 - 239 Borderline High. >/= 240 High. HDL < 40 Low >/=60 High. Triglycerides <150 desirable. <199 optimal. VlDL 5 - 40. HgbA1C <7%. BMI <25 Patient has diagnosis of Hyperlipidemia (ICD E78)?: No - Visit Date of Assessment:: 09/11/22 Session #:: 25 - Cholesterol/Lipids (Other Core Measures) Determine presence & major risk factors that modify LDL goal: Cigarette smoking, Hypertension or hypertensive medication, Low HDL cholesterol <40 mg/dL*, Family history of premature CHD in Male < 55 years: female <65 yearsFa, Age men > 45 years; women >/= 55 years Outcomes/Goals: Pt IDs own risk factors & lifestyle modifications by Session 10, Verbalizes symptoms of angina & response by session 3., Pt independently manages, Other Additional Outcomes/Goals: Intervention/Plan: Advocate for lipid panel cholesterol medication if applicable, Instruct on personal lipid levels & lipid goals/NCEP guidelines, Instruct on cholesterol, Other additional plan/int 30-day Reassessments:: Progressing - risk factors explained - Diabetes (Other Core Measures) Diabetes Type: Not Applicable - Weight Mgt (Other Care) Height: 5 ft 10 in Weight:: 77.337 kg BMI: 24.4 Diagnosis Overweight/Obesity BMI> 30% ICD-10 E66: No Diagnosis High BMI/Morbid Obesity BMI> 35% ICD-10 Z68: No Outcomes/Goals: Pt sets, maintains & shows weight loss goal & trend during rehab, Other additional outcomes/goals Intervention/Plan: Instruct on ideal BMI & set weight loss goal w/patient, Assist pt to ID & incorporate diet changes for weight loss by S9, Refer to Structured Weight Loss program as appropriate, Encourage goal of using 250- 300dcal per session for weight loss, Other additional plan/interventions 30 day Reassessments:: Met - Healthy Eating Habits Will attend diet classes:: Yes Outcomes/Goals:: Consume diet rich in vegs,fruits,whole grain/high fiber,fish,lean meat, Limit sat/trans fats,cholesterol & added salts & sugars, Other additional outcome/goals: Intervention/Plan:: Assess current eating habits, Other Additional plan/interventions - Education Gave educational materials for:: Signs & symptoms of hypoglycemia, Signs & symptoms of hyperglycemia, Relate diabetes to coronary artery disease, Healthy eating Nutrition - Final Assessment Core - Initial Assessment Core - 30-Day Assessment Core - 60-Day Assessment Core - 90 Day Assessment - Visit Date of Eval: 09/11/22 Session #:: 25 - Medication Compliance Preventative Medication(s):: Aspirin, MICAH inhibitor, Ticagrelor/P2Y12 inhibitor, Statin/lipid, Beta gricel H/O mental health issues: depression, anxiety, or addiction?: No Doesn?t believe in the benefits of treatment?: No Believes medications are unnecessary or harmful?: No Has a concern about medication side effects?: No Expresses concern over the cost of medications?: No Outcomes/Goals: Verbalizes medications,desired effect & common side effects @ DC, Pt self-reports following medication regimen, Keeps card in wallet w/medications listed by DC, Other additional outcome/goals: Interventions/plans: Instruct on medication effects & side effects, Review med ication list w/patient every two weeks, Instruct importance of taking meds as ordered & assist problem solving, Other additional 30-day Reassessments:: Progressing - encouraged to take meds - Tobacco Use Tobacco Use: Cigarettes Do you use smokeless tobacco?: No Outcomes/Goals: Smoking cessation achieved or maintained by discharge, Identify aids/strategies for achieving smoking cessation by session 6, Other additional outcome/goals Interventions/plan: Instruct on effects of smoking & provide smoking cessation resource, Assist pt to set quit date & provide encouragement, Assist pt to develop strategies to achieve/maintain quit date, Assist pt w/nicotine r eplacement & medication for cessation success, Other additional plan/interventions 30-day Reassessments:: Met - Hypertension Hypertension Diagnosis:: Hypertension ICD-10 I10 Resting Blood Pressure:: 130/80 - lisinopril increased from 10-20 mg 09/03/22 [place] [employer] Hypertension Guidelines: [place] [employer] Hypertension Guidelines. Normal BP Less than 120/80. Elevated BP 120/80. Hypertension Stage 1: BP 130-139/80-89. Hypertesnion Stage 2: BP 140 or higher/90 or higher. Hypertension Crisis: BP higher than 180/120 Outcomes/Goals: Able to verbalize/achieve optimal blood pressure <130/80, Incorporates diet changes & exercise for blood pressure control by DC, Other additional outcomes/goals Interventions/plan: Instruct on optimal blood pressure, hypertension & medications, Instruct on effects of sodium, alcohol, stress, exercise &hypertension, Other additional plan/interventions 30 day Reassessments:: Progressing - BP meds increased - Tobacco Cessation Referral Smoking Cessation Referral:: No Individual Education/Counseling:: No Education Schedule Given:: Yes Core - Final Assessment Psychosocial - Initial Assess Psychosocial - 30-Day Assess Psychosocial - 60-Day Assess Psychosocial - 90-Day Assess - VIsit Date of Eval: 09/11/22 Session #:: 25 History of previous Mental disease:: No Psychosocial - Final Assessmen Patient Health Questionnaire 90-Day Re-eval Assessment 1. Little interest or pleasure in doing things: Several days 2. Feeling down, depressed, or hopeless: Not at all 3. Trouble falling or staying asleep, or sleeping too much: Several days 4. Feeling tired or having little energy: Several days 5. Poor appetite or overeating: Not at all 6. Feeling bad about yourself -- or that you are a failure or have let yourself or your family down: Not at all 7. Trouble concentrating on things, such as reading the newspaper or watching television: Not at all 8. Moving or speaking so slowly that other people could have noticed. Or the opposite - being so fidgety or restless that you have been moving around a lot more than usual: Not at all 9. Thoughts that you would be better off , or of hurting yourself in some way: Not at all How difficult have these problems made it for you to do your work, take care of things at home, or get along with other people?: Not difficult at all Total Score: 3 Self-Efficacy 90-Day Re-eval Assessment We would like to know how confident you are in doing certain activities. Please select your confidence level for:: Select your confidence level for the following using the scale 1-10 where 1 is not at all confident and 10 is totally confident. Your score is the average of all 6 responses. Fatigue: How confident are you that you can keep the fatigue caused by your disease from interfering with the things you want to do? Select Number: 8 Physical Discomfort or Pain: How confident are you that you can keep the physical discomfort or pain of your disease from interfering with the things you want to do? Select Number: 8 Emotional Distress: How confident are you that you can keep the emotional distress caused by your disease from interfering with the things you want to do? Select Number: 7 Other Symptoms or Health Problems: How confident are you that you can keep other symptoms or health problems from interfering with the things you want to do? Select Number: 8 Different Tasks and Activities: How confident are you that you can do the different tasks and activities needed to manage your health condition so as to reduce your need to see a doctor? Select Number: 6 Medication: How confident are you that you can do things other than just taking medication to reduce how much your illness affects your everyday life? Select Number: 8 Total Score:: 7 Nutrition Survey
[2022-09-11 08:35] VITALS: BP 130/80; BMI 24.4
== END 2022-10-01 23:59 ==
LOC: CR 09:30
PROVIDERS: PCP Family Medicine; Referring Provider Specialist; Visit Provider Specialist
DX: Z95.5 Presence of coronary angioplasty implant and graft
CPT/HCPCS: 93798

== ENCOUNTER 2022-10-11 09:30 | Outpatient (RCR) | payer MEDICARE, OTHER, SELFPAY ==
[2022-09-11 08:35] VITALS: BMI 24.4
[2022-10-02 00:33] VITALS: BP 130/80
== END 2022-10-29 23:59 ==
LOC: CR 09:30
PROVIDERS: PCP Family Medicine; Referring Provider Specialist; Visit Provider Specialist
DX: I25.10 Atherosclerotic heart disease of native coronary artery without angina pectoris (principal); I25.2 Old myocardial infarction; Z95.5 Presence of coronary angioplasty implant and graft
CPT/HCPCS: 93798

== ENCOUNTER → 2023-08-12 | Outpatient (CLI) | payer MEDICARE, OTHER, SELFPAY ==
[2022-09-11 08:35] VITALS: BMI 24.4
--- NOTE | 2023-08-12 14:30 | CT_ITS ---
STUDY: LOW DOSE CT LUNG CANCER SCREENING REASON FOR EXAM: Male, 68 years old. TOBACCO USE. Patient smoked 1 pack per day for 52 years. RADIATION DOSAGE (If Supplied By Facility): CTDIvol = ( 2.39 ) mGy, DLP = ( 90.25 ) mGycm TECHNIQUE: No contrast was administered. Low dose technique was utilized (average mAS-38 and kVp 120). 1.25 mm axial source images with a slice interval of 1.25-mm were reconstructed in lung windows. 2.5 mm axial source images with a slice interval of 2.5-mm were reconstructed in lung windows. 5.0 mm axial source images with a slice interval of 5.0-mm were reconstructed in soft tissue windows. COMPARISON: Comparison is made with prior study dated July 23, 2022. NODULES: No suspicious nodules are seen. Stable small calcified granuloma in the right middle lobe. Emphysema: Emphysematous changes. Scarring at the left lung apex. Endobronchial lesion: None Aorta: Atherosclerotic calcific plaques at the level of the aortic arch. CORONARY ARTERIES: Coronary artery calcification is seen. Heart: Unremarkable Pulmonary artery: Unremarkable Mediastinal nodes: Small benign-appearing mediastinal lymph nodes. Other chest and abdominal findings: CT/Low Dose CT Lung Screening IMPRESSION: Lung-RADS category 2 - Continue annual screening with LDCT in 12 months. IMPORTANT NOTES FOR USE: ACR Lung-RADS Version 1.1 Assessment Categories Release Date: 2018 Category: Coded 0-4 bases on nodule(s) with highest degree of suspicion. Negative screen is defined as categories 1 and 2; a positive screen is defined as categories 3 and 4. Category 3 and 4A nodules that are unchanged on interval CT should be coded as category 2, and individuals returned to screening in 12 months. Category 4X: Category 3 or 4 nodules with additional imaging findings that increase the suspicion of lung cancer, such as spiculation, GGN that doubles in size in 1 year, enlarged lymph notes, etc. Category Modifiers: S (significant finding unrelated to lung cancer) Electronically Signed: Aden Mcdermott MD at 15:20 EST ,
== END | disposition home or self-care (01) ==
LOC: CT 14:20
PROVIDERS: PCP Family Medicine; Referring Provider Family Medicine; Visit Provider Family Medicine
DX: Z12.2 Encounter for screening for malignant neoplasm of respiratory organs (principal); F17.210 Nicotine dependence, cigarettes, uncomplicated
CPT/HCPCS: 71271

== ENCOUNTER → 2023-08-19 | Outpatient (CLI) | payer MEDICARE, OTHER, SELFPAY ==
[2022-09-11 08:35] VITALS: BMI 24.4
[2023-08-19 08:23] LABS: Absolute Lymphocyte Count 2.26 X10^3/uL (0.83-4.51); Absolute Neutrophil Count 5.9 X10^3/uL (2.0-7.7); Basophil# 0.09 X10^3/uL; Basophil% 0.9 % (0-1); Eosinophil# 0.62 X10^3/uL; Eosinophils% 6.3 % (0-5); Hematocrit 45.6 % (40-54); Hemoglobin 14.4 g/dL (13.0-16.5); Lymphocyte # 2.26 X10^3/ul (0.83-4.51); Mean Corp Hgb Conc 31.6 g/dL (32-36); Mean Corpuscular Hgb 28.5 pg (27.0-32.0); Mean Corpuscular Volume 90.3 fL (80-94); Mean Platelet Vol. 9.4 fl (6.2-12.0); Monocyte# 0.96 X10^3/uL; Monocyte% 9.8 % (0-10); NRBC Flagged by Analyzer 0 % (0-5); Neutrophil # 5.86 X10^3/uL (2.7-7.7); Neutrophil % 59.7 % (47-70); Platelet Count 235 K/mm3 (150-450); RBC Distribution Width CV 14.3 % (11.6-14.6); RBC Distribution Width SD 47.3 fl (35.1-43.9); Red Blood Count 5.05 M/mm3 (4.6-6.2); White Blood Count 9.8 K/mm3 (4.4-11.0)
[2023-08-19 08:43] LABS: ALB/GLOB Ratio 1.2 RATIO (0.9-2.4); AST(SGOT) 13 U/L (15-37); Alanine Aminotransfer ALT/SGPT 18 U/L (16-61); Albumin, Serum 3.8 g/dL (3.2-5.0); Alkaline Phosphatase 35 U/L (45-117); Anion Gap 3 (5-15); BUN 16 mg/dL (7-18); BUN/Creat Ratio 21.4 RATIO (10-20); Calcium,Total 9.3 mg/dL (8.5-10.1); Chloride 111 mmol/L (98-107); Cholesterol 124 mg/dL (200); Creatinine, Serum 0.75 mg/dL (0.70-1.30); EST Glomerular Filtration Rate 110 mL/min (>60); Est Glom Filt Rate - Afr Amer 133 mL/min (>60); Globulin 3.3 g/dL (2.2-4.2); Glucose 99 mg/dL (74-106); High Density Lipoprotein 47 mg/dL; PSA,Total - Annual Screen 1.84 ng/mL (0.00-4.00); Protein, Total 7.1 g/dL (6.4-8.2); Sodium Level 141 mmol/L (136-145); Triglycerides 86 mg/dL; Very Low Density Lipoprotein 17 mg/dL (5-40)
== END | disposition home or self-care (01) ==
LOC: LAB 07:58
PROVIDERS: PCP Family Medicine; Visit Provider Family Medicine
DX: I25.10 Atherosclerotic heart disease of native coronary artery without angina pectoris (principal); I10 Essential (primary) hypertension; E78.00 Pure hypercholesterolemia, unspecified; Z12.5 Encounter for screening for malignant neoplasm of prostate
CPT/HCPCS: 36415; 80053; 80061; 84153; 85025; G0103

== ENCOUNTER → 2024-09-20 | Outpatient (CLI) | payer MEDICARE, OTHER, SELFPAY ==
[2022-09-11 08:35] VITALS: BMI 24.4
--- NOTE | 2024-09-20 12:38 | CDU_ITS ---
Reason For Study: Carotid Stenosis Rt. Velocities/BP Lt. Velocities/BP Prox CCA 77.8/13.5 cm/sec. Prox CCA 92.8/20.4 cm/sec. Mid CCA 70.2/17.3 cm/sec. Mid CCA 76.9/16.7 cm/sec. Dist CCA 551./18.2 cm/sec. Dist CCA 67.0/17.9 cm/sec. Prox ICA 41.3/17.7 cm/sec. Prox ICA 50.4/16.3 cm/sec. Mid ICA 59.6/19.5 cm/sec. Mid ICA 65.5/29.6 cm/sec. Dist ICA 50.9/16.0 cm/sec. Dist ICA 68.4/23.8 cm/sec. Rt. ICA/CCA = 0.8. Lt. ICA/CCA = 0.9. Prox ECA 91.6/12.4 cm/sec. Prox ECA 87.6/12.6 cm/sec. Rt. Vert. 43.0/9.0 cm/sec. Lt. Vert. 46.5/14.2 cm/sec. Right Extracranial There is intimal thickening but no significant atherosclerotic plaque noted in the right common carotid artery. There is heterogeneous, irregular atherosclerotic plaque noted in the right internal carotid artery. There is homogeneous, smooth atherosclerotic plaque noted in the right external carotid artery. Antegrade flow is noted in the right vertebral artery. Left Extracranial There is homogeneous, smooth atherosclerotic plaque noted in the left common carotid artery. There is heterogeneous, irregular atherosclerotic plaque noted in the left internal carotid artery. There is intimal thickening but no significant atherosclerotic plaque noted in the left external carotid artery. Procedure Carotid Duplex 24196. This is a Carotid Duplex examination using B-mode, color flow and specral Doppler. Exam performed in department. VL/Carotid Duplex Ultrasound Interpretation Summary Mild (<50%) stenosis right extracranial internal carotid. Mild (<50%) stenosis left extracranial internal carotid. Flow within the vertebral arteries is antegrade bilaterally. Ordering Physician: Adi Young Referring Physician: Adi Young Performed By: Dianne Mcdonough RVT and Student
--- NOTE | 2024-09-20 12:39 | CT_ITS ---
STUDY: LOW DOSE CT LUNG CANCER SCREENING REASON FOR EXAM: Male, 69 years old. SCREENING RADIATION DOSAGE (If Supplied By Facility): CTDIvol = ( 3.02 ) mGy, DLP = ( 120.41 ) mGycm TECHNIQUE: No contrast was administered. Low dose technique was utilized (average mAS-38 and kVp 120). 1.25 mm axial source images with a slice interval of 1.25-mm were reconstructed in lung windows. 2.5 mm axial source images with a slice interval of 2.5-mm were reconstructed in lung windows. 5.0 mm axial source images with a slice interval of 5.0-mm were reconstructed in soft tissue windows. COMPARISON: Prior study dated: 08/12/2023 NODULES: Total lung nodules (excluding granulomas): None . Right middle lobe calcified granuloma again noted. Emphysema: Mild centrilobular and paraseptal emphysema at the apices. Endobronchial lesion: None. Aorta: Normal caliber aorta with mild atherosclerotic calcification. CORONARY ARTERIES: Coronary artery calcification is seen. Heart: Normal size. No pericardial effusion. Pulmonary artery: Normal caliber. Mediastinal nodes: No mediastinal lymphadenopathy. Other chest and abdominal findings: No pleural effusion or consolidation. No acute abnormality in the visualized upper abdomen. Mild degenerative changes in the spine. CT/Low Dose CT Lung Screening IMPRESSION: Lung-RADS category 2 - Continue annual screening with LDCT in 12 months. IMPORTANT NOTES FOR USE: ACR Lung-RADS Version 1.1 Assessment Categories Release Date: 2018 Category: Coded 0-4 bases on nodule(s) with highest degree of suspicion. Negative screen is defined as categories 1 and 2; a positive screen is defined as categories 3 and 4. Category 3 and 4A nodules that are unchanged on interval CT should be coded as category 2, and individuals returned to screening in 12 months. Category 4X: Category 3 or 4 nodules with additional imaging findings that increase the suspicion of lung cancer, such as spiculation, GGN that doubles in size in 1 year, enlarged lymph notes, etc. Category Modifiers: S (significant finding unrelated to lung cancer) Electronically Signed: Adalberto Redmond MD at 21:59 EST ,
== END | disposition home or self-care (01) ==
LOC: CVS 12:36
PROVIDERS: PCP Family Medicine; Referring Provider Family Medicine; Visit Provider Family Medicine
DX: I65.23 Occlusion and stenosis of bilateral carotid arteries (principal); F17.210 Nicotine dependence, cigarettes, uncomplicated
CPT/HCPCS: 71271; 93880

== ENCOUNTER → 2024-10-08 | Outpatient (CLI) | payer MEDICARE, OTHER, SELFPAY ==
[2022-09-11 08:35] VITALS: BMI 24.4
--- NOTE | 2024-10-08 07:29 | AAVD_ITS ---
Reason For Study Reason For Study: S/P EVAR Aorta Measurements Aorta Doppler Measurements Proximal aorta measures2.89 x 2.80cm. in cross-sectional Peak systolic flow velocities within the proximal aorta axis. measure 31.1 cm/sec. Proximal aorta measures2.85cm. in longitudinal axis. EVAR noted EVAR noted Rt Limb Prox - 43.4cm Mid residual AAA - 4.70cm x 4.99cm Rt Limb Dist - 55.6cm Mid Residual AAA - 4.15cm Lt Limb Prox - 52.8cm Dist Residual AAA - 6.70cm x 6.30cm Lt Limb Dist - 26.4cm Dist Residual AAA - 6.67cm Rt Limb Prox - 1.28cm x 1.24cm Possible EVAR Leak Visualized in Power and Color Doppler. Rt Limb Prox - 1.20cm Rt Limb Dist - 1.55cm x 1.59cm Rt Limb Dist - 1.29cm Lt Limb Prox - 1.30cm x 1.38cm Lt Limb Prox - 1.24cm Lt Limb Dist - 1.74cm x 1.62cm Lt Limb Dist - 1.49cm. Left Iliac Artery Left iliac artery measures 1.87 x 1.62 cm. in the cross-sectional axis. Left iliac artery measures 1.92 cm. in the longitudinal axis. Peak systolic velocity in the left iliac artery measures 34.9 cm/sec. Right Iliac Artery Right iliac artery measures 1.27 x 1.27 cm. in the cross-sectional axis. Right iliac artery measures 1.58 cm. in the longitudinal axis. Peak systolic velocity in the right iliac artery measures 23.5 cm/sec. Procedure Aorta IVC Iliac vasculature or bypass grafts 42546. The exam was diagnostic. Exam performed in department. VL/Abd Aortic/IVC Duplex scan Interpretation Summary Patent endograft with normal velocities and no evidence of stenosis. Residual aneurysm sac increase in size to 6.7 cm and endoleak visualized, origi n not able to be determined. Ordering Physician: Annie Morgan Referring Physician: Adi Young Performed By: Binh Olivares RVT
[2024-10-08 09:23] LABS: Absolute Lymphocyte Count 2.05 X10^3/uL (0.83-4.51); Absolute Neutrophil Count 5.1 X10^3/uL (2.0-7.7); Basophil# 0.06 X10^3/uL; Basophil% 0.7 % (0-1); Eosinophil# 0.32 X10^3/uL; Eosinophils% 3.8 % (0-5); Hematocrit 43.6 % (40-54); Hemoglobin 14.2 g/dL (13.0-16.5); Lymphocyte # 2.05 X10^3/ul (0.83-4.51); Lymphocyte % 24.3 % (19-41); Mean Corp Hgb Conc 32.6 g/dL (32-36); Mean Corpuscular Hgb 28.8 pg (27.0-32.0); Mean Corpuscular Volume 88.4 fL (80-94); Mean Platelet Vol. 9.2 fl (6.2-12.0); Monocyte% 10.7 % (0-10); NRBC Flagged by Analyzer 0 % (0-5); Neutrophil # 5.07 X10^3/uL (2.7-7.7); Neutrophil % 60.3 % (47-70); Platelet Count 220 K/mm3 (150-450); RBC Distribution Width CV 14.2 % (11.6-14.6); RBC Distribution Width SD 45.8 fl (35.1-43.9); Red Blood Count 4.93 M/mm3 (4.6-6.2); White Blood Count 8.4 K/mm3 (4.4-11.0)
[2024-10-08 09:53] LABS: ALB/GLOB Ratio 1.1 RATIO (0.9-2.4); AST(SGOT) 14 U/L (15-37); Alanine Aminotransfer ALT/SGPT 17 U/L (16-61); Albumin, Serum 3.6 g/dL (3.2-5.0); Alkaline Phosphatase 35 U/L (45-117); Anion Gap 5 (5-15); BUN 15 mg/dL (7-18); BUN/Creat Ratio 20.8 RATIO (10-20); Chloride 109 mmol/L (98-107); Cholesterol 125 mg/dL (200); Creatinine, Serum 0.72 mg/dL (0.70-1.30); EST Glomerular Filtration Rate 114 mL/min (>60); Est Glom Filt Rate - Afr Amer 138 mL/min (>60); Globulin 3.2 g/dL (2.2-4.2); Glucose 99 mg/dL (74-106); High Density Lipoprotein 47 mg/dL; PSA,Total - Annual Screen 1.28 ng/mL (0.00-4.00); Protein, Total 6.8 g/dL (6.4-8.2); Sodium Level 142 mmol/L (136-145); Triglycerides 67 mg/dL; Very Low Density Lipoprotein 13 mg/dL (5-40)
== END | disposition home or self-care (01) ==
PROVIDERS: PCP Family Medicine; Referring Provider Physician Assistant; Visit Provider Physician Assistant
DX: Z12.5 Encounter for screening for malignant neoplasm of prostate (principal); I10 Essential (primary) hypertension; I25.10 Atherosclerotic heart disease of native coronary artery without angina pectoris; Z48.812 Encounter for surgical aftercare following surgery on the circulatory system; Z98.890 Other specified postprocedural states; Z86.79 Personal history of other diseases of the circulatory system
CPT/HCPCS: 36415; 80053; 80061; 84153; 85025; 93978; G0103

== ENCOUNTER → 2024-11-02 | Outpatient (CLI) | payer MEDICARE, OTHER, SELFPAY ==
[2022-09-11 08:35] VITALS: BMI 24.4
--- NOTE | 2024-11-02 06:00 | CT_ITS ---
PROCEDURE: CTA ABD/PELVIS W/WO CONTRAST REASON FOR EXAM: Status post endovascular aortic aneurysm repair. Concern for endoleak/sac enlargement. TECHNIQUE: CT of the abdomen and pelvis was performed with and without intravenous contrast. Multiplanar reformats were obtained afterwards. 3D reconstructions. IV CONTRAST: Yes COMPARISON: Ultrasound abdominal aorta dated August 06, 2022. FINDINGS: Nonvascular: There are streaky changes near the lingula. There is no pleural pericardial effusion. There is no free air within the abdomen. There are some calcified granulomas within the liver. Area of wedge-shaped enhancement is seen within the right inferior lobe of the liver which is best seen on image 64/178 on the axial series. This measures approximately 2.1 x 1.3 by 2.8 cm. Further evaluation with ultrasound may be helpful. The spleen is within normal limits. There is thickening of bilateral adrenal glands, right greater than left, etiology to be determined. The pancreas is within normal limits. There are bilateral renal cysts present. The largest is within the upper pole on the right side measuring up to 3.8 cm. Left upper pole renal cyst measures up to 2.8 cm. The kidneys are without evidence of obstructive uropathy bilaterally. The urinary bladder is incompletely distended. The prostate appears prominent measuring up to 5.4 cm in transverse dimension. Evaluation of small bowel and colon does not demonstrate focal bowel wall thickening or dilatation. There is no evidence of bowel obstruction. The appendix is normal. No abnormal free fluid is seen within the abdomen and pelvis. Vascular: Patient is status post endovascular repair of abdominal aortic aneurysm. The aneurysmal sac measures up to 6.6 AP by 6.9 cm TV in its maximal dimension. The aneurysmal sac previously measured up to 5.9 x 5.3 cm on comparison ultrasound dated 08/06/2022. Abnormal contrast blush is noted within the anterior portion of the sac near the expected origin of the NAWAF. This is best seen on image 83 of 178. The NAWAF is not definitively identified however. 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 In addition similar-appearing contrast blush is seen posteriorly in the aneurysmal sac best seen on image 91/178 also consistent type 2 endoleak likely from a posterior lumbar arteries. The origins of the celiac, SMA, bilateral renal arteries are patent. There is evidence of intimal hyperplasia within the stent. Bilateral common, internal/external iliacs demonstrate atheromatous calcification without evidence of aneurysmal dilatation. Degenerative changes seen within the spine. No acute osseous abnormality is present. CT/CTA Abd/Pelvis W/WO Contrast IMPRESSION: Status post EVAR procedure. Enlarged aneurysmal sac measuring up to 6.6 x 6.9 cm. 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 Please note that the aneurysmal sac previously measured up to 5.9 x 5.3 cm in 2021. Recommend vascular surgery/IR input and close follow-up. 2.8 cm wedge-shaped enhancement within the right lobe of the liver. Etiology t o be determined. May obtain focal ultrasound for further assessment. One or more dose reduction techniques were used (e.g., Automated exposure contr ol, adjustment of the mA and/or kV according to patient size, use of iterative reconstruction technique). Reading Location: [id number]
== END | disposition home or self-care (01) ==
LOC: CT 06:00
PROVIDERS: PCP Family Medicine; Referring Provider Physician Assistant; Visit Provider Physician Assistant
DX: Z48.812 Encounter for surgical aftercare following surgery on the circulatory system (principal); Z98.890 Other specified postprocedural states; Z86.79 Personal history of other diseases of the circulatory system; I71.40 Abdominal aortic aneurysm, without rupture, unspecified
CPT/HCPCS: 74174; Q9967

== ENCOUNTER → 2024-11-15 | Outpatient (CLI) | payer MEDICARE, OTHER, SELFPAY ==
[2022-09-11 08:35] VITALS: BMI 24.4
--- NOTE | 2024-11-15 09:50 | US_ITS ---
PROCEDURE: LIVER ([facility]), 11/15/2024 REASON FOR EXAM: 2.8 CM WEDGE-SHAPED ENHANCEMENT RIGHT LOBE ON CTA COMPARISON: 11/02/2024 FINDINGS: Liver: Right lobe probable no definite sonographic correlate granulomas as seen on comparison CT. No definite sonographic correlate for the previous CT finding. 16.9 cm in length. Gallbladder: Unremarkable. Reportedly, sonographic Brown's was negative. Biliary tree: Unremarkable. CBD measures 5 mm. Pancreas: Partially obscured by shadowing bowel gas, grossly unremarkable as visualized. Right kidney: Cysts up to 3.5 x 3.3 x 3.0 cm. 9.6 cm in length. Other: No visualized free fluid. US/Liver IMPRESSION: 1. No definite sonographic correlate for the recent CT finding. Given the conf iguration previously, this may have reflected a normal variant perfusional abnormality. 2. Additional description as above. Reading Location: [id number]
== END | disposition home or self-care (01) ==
LOC: US 09:49
PROVIDERS: PCP Family Medicine; Referring Provider Physician Assistant; Visit Provider Physician Assistant
DX: K76.9 Liver disease, unspecified (principal)
CPT/HCPCS: 76705